=== PATIENT | male | born 1985 | race Caucasian/White ===

== ENCOUNTER 2017-04-20 09:40 | Observation (INO) | payer MEDICAID, OTHER ==
[2017-04-20] MEDS ORDERED: THIAMINE 100 MG/ML 2 ML VIAL IM STA (09:56)
[2017-04-20] MEDS ORDERED: SODIUM CHLORIDE 0.9% 1,000 ML IV STA (09:56)
[2017-04-20] MEDS: LORazepam 2 MG/ML SYRINGE IV PRN ×7 (10:03→23:22)
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
[2017-04-20 10:27] LABS: Basophils % (A) 0 %; CH 35.1; CHCM 36.2; Eosinophils # (A) 0.1 k/uL (0-0.7); Eosinophils % (A) 2 %; HCT 41.7 % (39.0-53.0); HGB 14.5 gm/dL (13.0-17.5); Luc # (Auto) 0.16; Luc % (Auto) 2; Lymphocytes # (A) 1.1 k/uL (1.0-4.8); Lymphocytes % (A) 14 %; MCH 33.8 pg (25.0-35.0); MCHC 34.8 g/dL (31.0-37.0); MCV 97.1 fL (80.0-100.0); Mean Platelet Volume 7.8; Monocytes # (A) 0.4 k/uL (0-1.0); Monocytes % (A) 6 %; Neutrophils # (A) 6.2 k/uL (1.3-7.7); Neutrophils % (A) 77 %; RBC 4.29 m/uL (4.30-5.90); RDW 14.1 % (11.5-15.5); WBC 8.1 k/uL (3.8-10.6)
--- NOTE | 2017-04-20 10:33 | XR ---
EXAMINATION TYPE: XR KUB DATE OF EXAM: 04/20/2017 COMPARISON: 05/07/2012 INDICATION: Abdomen pain loss of appetite TECHNIQUE: Single view abdomen upright view FINDINGS: There is a normal bowel gas pattern. Psoas margins are normal. No organomegaly is present. No free air is evident. No suspicious differential air-fluid levels are present. No suspicious calcif ications. IMPRESSION: 1. Unremarkable Abdomen
[2017-04-20 10:37] LABS: Amylase 45 U/L (30-110); Anion Gap 17 mmol/L; Calcium 9.1 mg/dL (8.4-10.2); Carbon Dioxide 22 mmol/L (22-30); Chloride 97 mmol/L (98-107); Glucose 75 mg/dL (74-99); Non-African American GFR(MDRD) >60 (>60 ml/min/1.73 sqM); Sodium 136 mmol/L (137-145); Total Bilirubin 1.5 mg/dL (0.2-1.3); Total Protein 7.7 g/dL (6.3-8.2)
[2017-04-20 10:43] LABS: Potassium 3.9 mmol/L (3.5-5.1)
[2017-04-20 10:44] LABS: ALT 76 U/L (21-72); AST 78 U/L (17-59); Alkaline Phosphatase 83 U/L (38-126); Blood Urea Nitrogen 9 mg/dL (9-20)
[2017-04-20 11:45] LABS: Appearance,Urine Clear (Clear); Bilirubin,Urine Negative (Negative); Glucose,Urine (UA) Negative (Negative); Ketones,Urine 2+ (Negative); Leukocyte Esterase,Urine Negative (Negative); Nitrite,Urine Negative (Negative); Protein,Urine Negative (Negative); Specific Gravity,Urine 1.006 (1.001-1.035); UA Billing (MACRO vs. MICRO) CHEM
[2017-04-20] MEDS ORDERED: ONDANSETRON 4 MG/2 ML VIAL IVP STA ×2 (12:19→13:12)
[2017-04-20] MEDS ORDERED: SODIUM CHLORIDE 0.9% 1,000 ML IV ONE (13:10)
[2017-04-20 14:40] VITALS: BMI 26.5
[2017-04-20] MEDS: ONDANSETRON 4 MG/2 ML VIAL IVP PRN ×2 (15:28→19:48)
[2017-04-20] MEDS: buPROPion XL 150 MG TAB.ER.24H PO SCH (16:28)
[2017-04-20] MEDS: QUEtiapine 200 MG TAB PO SCH (16:29)
[2017-04-20] MEDS: THIAMINE 100 MG TAB PO SCH (16:29)
[2017-04-20] MEDS: PANTOPRAZOLE 40 MG/10 ML VIAL IVP SCH (16:29)
[2017-04-20] MEDS: busPIRone HCl 10 MG TAB PO SCH ×2 (16:29→19:56)
[2017-04-20] MEDS: HYDROcodone/APAP 7.5-325MG 1 EACH TAB PO PRN ×2 (18:37→23:24)
[2017-04-20] MEDS: QUEtiapine 100 MG TAB PO SCH (19:56)
[2017-04-20] MEDS: GABAPENTIN 300 MG CAP PO SCH (19:56)
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
[2017-04-21] MEDS: LORazepam 2 MG/ML SYRINGE IV PRN ×11 (00:47→23:54)
[2017-04-21 07:12] LABS: ALT 61 U/L (21-72); AST 53 U/L (17-59); Alkaline Phosphatase 65 U/L (38-126); Anion Gap 10 mmol/L; Blood Urea Nitrogen 9 mg/dL (9-20); Calcium 8.7 mg/dL (8.4-10.2); Carbon Dioxide 26 mmol/L (22-30); Chloride 105 mmol/L (98-107); Glucose 81 mg/dL (74-99); Non-African American GFR(MDRD) >60 (>60 ml/min/1.73 sqM); Potassium 3.7 mmol/L (3.5-5.1); Sodium 141 mmol/L (137-145); Total Protein 6.4 g/dL (6.3-8.2)
[2017-04-21] MEDS: PANTOPRAZOLE 40 MG/10 ML VIAL IVP SCH (08:26)
[2017-04-21] MEDS: GABAPENTIN 300 MG CAP PO SCH ×3 (08:26→20:56)
[2017-04-21] MEDS: buPROPion XL 150 MG TAB.ER.24H PO SCH (08:27)
[2017-04-21] MEDS: busPIRone HCl 10 MG TAB PO SCH ×3 (08:27→20:57)
[2017-04-21] MEDS: QUEtiapine 200 MG TAB PO SCH (08:28)
[2017-04-21] MEDS: HYDROcodone/APAP 7.5-325MG 1 EACH TAB PO PRN ×2 (08:38→17:00)
[2017-04-21] MEDS: ONDANSETRON 4 MG/2 ML VIAL IVP PRN ×2 (11:25→17:59)
[2017-04-21] MEDS: THIAMINE 100 MG TAB PO SCH ×2 (11:31→17:03)
[2017-04-21] MEDS: QUEtiapine 100 MG TAB PO SCH (21:58)
--- NOTE | 2017-04-21 23:15 | P.PN ---
Subjective Principal diagnosis: Alcohol abuse and suicidal ideation Patient 32-year-old male significant past medical history for depression, alcoholism, who presents emergency room today by EMS, the chief complaint of nausea vomiting and abdominal pain and alcohol withdrawals. Abdominal pain is mainly in the epigastric region no radiation. No worsening factors. Patient is also very depressed and he does admit that he's also feeling suicidal. He states he would like to talk with somebody. When specifically asked if he is having thoughts of hurting himself he stated to me that he did not want to talk about it. He did tell nursing staff that he has had thoughts of hurting himself. Patient admits that his last drink was 5 PM last night. Patient denies any recent fever, chills, shortness of breath, chest pain, back pain, numbness or tingling, dysuria or hematuria, constipation or diarrhea, headaches or visual changes, or any other complaints. 04/21/2017 Patient seems depressed and denied any new complaints. No fever no chills. No chest pain or shortness breath. No acute or dishes. Anticipate transfer to psychiatric unit once bed available Objective - Vital Signs Vital signs: Vital Signs Temp 98.7 F 04/21/17 19:21 Pulse 64 04/21/17 19:21 Resp 16 04/21/17 19:21 BP 142/99 04/21/17 19:21 Pulse Ox 98 04/21/17 19:21 Intake & Output 04/21/17 04/21/17 04/22/17 06:59 18:59 06:59 Weight 81.5 kg Other: Voiding Method Toilet Toilet # Voids 3 1 # Bowel Movements 1 - Exam PHYSICAL EXAMINATION: Patient is lying in the bed comfortably, no acute distress, awake alert and oriented.. HEENT: Normocephalic. Neck is supple. Pupils reactive. Nostrils clear. Oral cavity is moist. Ears reveal no drainage. Neck reveals no JVD, carotid bruits, or thyromegaly. CHEST EXAMINATION: Trachea is central. Symmetrical expansion. Lung freitas clear to auscultation and percussion. CARDIAC: Normal S1, S2 with no gallops. No murmurs ABDOMEN: Soft. Bowel sounds normal. No organomegaly. No abdominal bruits. Extremities reveal no edema. No clubbing or cyanosis Neurologically awake, alert, oriented x3 with well-coordinated movements. Skin: no rash or skin lesions Psychiatric: Depressed and denied any suicidal ideation Musculoskeletal: no joint swelling or deformity. - Labs CBC & Chem 7: 04/20/17 10:11 04/21/17 06:40 Assessment and Plan Plan: #1 nausea vomiting abdominal pain with possible alcohol gastritis. Improved #2 alcohol abuse #3 depression with suicidal ideation #4 GERD #5 anxiety and depression history #6 UDS positive for benzodiazepines, marijuana, tricyclic and antidepressants Plan: Patient will be continued on IV fluids and symptomatic management for nausea and vomiting. Patient was started on IV Protonix and continue to follow and monitor for alcohol withdrawal symptoms. Psychiatric was consulted. Further recommendations based on the clinical course. Patient is cleared for transfer to inpatient psychiatric unit.
[2017-04-22] MEDS: LORazepam 2 MG/ML SYRINGE IV PRN ×5 (04:18→13:28)
[2017-04-22 04:25] VITALS: RESP 18
[2017-04-22 07:45] VITALS: BP 119/88; PULSE 73; TEMP 98.1
[2017-04-22] MEDS: busPIRone HCl 10 MG TAB PO SCH (08:47)
[2017-04-22] MEDS: PANTOPRAZOLE 40 MG/10 ML VIAL IVP SCH (08:47)
[2017-04-22] MEDS: buPROPion XL 150 MG TAB.ER.24H PO SCH ×2 (08:47→08:53)
[2017-04-22] MEDS: QUEtiapine 200 MG TAB PO SCH (08:48)
[2017-04-22] MEDS: HYDROcodone/APAP 7.5-325MG 1 EACH TAB PO PRN (08:49)
[2017-04-22] MEDS: GABAPENTIN 300 MG CAP PO SCH ×2 (09:34→12:48)
--- NOTE | 2017-04-22 11:01 | CONS ---
DATE OF SERVICE: 04/21/2017 PURPOSE OF CONSULTATION: Evaluate for substance use disorder. HISTORY OF PRESENT ILLNESS: The patient is a 32-year-old male. He presented to the emergency room with chief complaint of alcohol use. He was feeling suicidal in part because of his drinking. He had drank at 5:00 p.m. On the right prior to admission, he had complained of nausea, vomiting and abdominal pain, which was felt likely related to alcohol withdrawal. It is noted that the patient has a significant history of alcohol dependence. He has had multiple psychiatric hospitalizations including six prior hospitalizations since 2014 essentially for the same circumstances. He has been in treatment a number of times. He says that he will get out of treatment and will relapse very quickly. He notes that the last time he was in [place]. He was there for 32 days. When he got out he went for about a month without drinking and then relapsed. He says that this has been his history for many years. He says that one month of sobriety is probably the longest period that he has had sobriety in many years. He is on disability. He note that his mother handles his money. She gives him a limited amount of money though he acknowledges using it buy alcohol. At present he is homeless. He states that he has had some jobs intermittently though almost always he loses jobs because of drinking. 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 Current psychotropic medications prior to admission included Wellbutrin XL 150 mg a day, BuSpar 20 mg three times a day, Seroquel 200 mg in the morning and 300 mg in the evening. He is also on Neurontin 300 mg twice a day, 600 mg at bedtime. He has been continued on psychotropic medications. He also has been started on an alcohol withdrawal protocol. It is also noted that the patient is on hydrocodone 7.5 mg q.6h p.r.n. Patient himself states that alcohol is his drug of choice. He minimizes use of marijuana or other habit forming substances. On the other hand his drug screen was positive for marijuana , benzodiazepines, tricyclic antidepressants and barbiturates. It is note worthy that he is not on any prescribed medications based on what is reported as home medications that would show positive for barbiturate. Patient has been sleeping poor. His mood is down. He is distressed primarily by his relapse into drinking. He states that he has motivation to get into a substance use treatment program. He was at [place] for a 7 day detox program. The patient states he is willing to get into a substance use treatment program. It is noted that he is homeless. Nursing reports that he has not showed significant problems with mood or anxiety. It is noted that he may have intentionally mishandled [place] that was prescribed. MENTAL STATUS: The patient was lying in bed. The head of the bed was up. He gave good eye contact. Psychomotor activity was slowed. Speech was monotone. He answered questions appropriately. His thoughts were clear. He was not too spontaneous though he was interactive. His affect was blunted. His mood reserved. He was moderately distressed. There was no indication of thought disorder. Cognition was clear. ASSESSMENT AND PLAN: This 32 -year-old male was diagnosed with alcohol dependence continuous and major depression. He has had multiple psychiatric hospitalizations often with very similar circumstances of drinking leading to depression. He has had been in various substance use treatment programs and quite predictably relapses soon after discharge. At this point, I anticipate that we would transfer him to the psychiatric unit. However, I would have the social service worker begin looking for placement. Psychiatric hospitalization would primarily be aimed at setting up transfer to a substance use treatment program. At this point, I would continue his psychotropic medications as ordered. His CIWA scores today have been hovering around 10. It is noted that the patient describes a past history of hallucinations, at least one time and acute alcohol withdrawal though has not reported any clear indication of DTs. We will continue to focus on detoxification and aim for placement in an opioid substance use treatment program. [facility]
[2017-04-22] MEDS: THIAMINE 100 MG TAB PO SCH (11:18)
--- NOTE | 2017-04-23 01:08 | P.DS ---
Providers Date of admission: 04/20/17 13:08 Expected date of discharge: 04/22/17 Attending physician: Gerardo Bhatia MD Consults: 04/20/17 13:10 Consult Physician Stat Consulting Provider: Christiano Thomas Consult Reason/Comments: Depression Do you want consulting provider notified?: Already Contacted Primary care physician: Stated None Hospital Course: Discharge diagnosis #1 nausea vomiting abdominal pain with possible alcohol gastritis. Improved #2 alcohol abuse #3 depression with suicidal ideation #4 GERD #5 anxiety and depression history #6 UDS positive for benzodiazepines, marijuana, tricyclic and antidepressants Hospital course Patient 32-year-old male significant past medical history for depression, alcoholism, who presents emergency room today by EMS, the chief complaint of nausea vomiting and abdominal pain and alcohol withdrawals. Abdominal pain is mainly in the epigastric region no radiation. No worsening factors. Patient is also very depressed and he does admit that he's also feeling suicidal. He states he would like to talk with somebody. When specifically asked if he is having thoughts of hurting himself he stated to me that he did not want to talk about it. He did tell nursing staff that he has had thoughts of hurting himself. Patient admits that his last drink was 5 PM last night. Patient denies any recent fever, chills, shortness of breath, chest pain, back pain, numbness or tingling, dysuria or hematuria, constipation or diarrhea, headaches or visual changes, or any other complaints. 04/21/2017 Patient seems depressed and denied any new complaints. No fever no chills. No chest pain or shortness breath. No acute or dishes. Anticipate transfer to psychiatric unit once bed available 04/20/2017. Patient was seen by psychiatry and recommended inpatient psychiatric transfer. Sittter was discontinued. Patient doesn't want to be transferred to psychiatric unit and wants to go home. Patient otherwise denied any suicidal ideation. Patient left againest medical advice. Patient was monitored for alcohol withdrawal symptoms. Continued with IV fluids , thiamine and multivitamins. Continued on Protonix. Patient did improve medically. Denied any suicidal ideation.. And wants to go home. Patient left against medical advice. Patient Condition at Discharge: Stable Plan - Discharge Summary New Discharge Prescriptions: New Thiamine [Vitamin B-1] 100 mg PO DAILY #30 tab Continue Gabapentin 600 mg PO HS 28 Days QUEtiapine FUMARATE [SEROquel] 300 mg PO HS 28 Days HYDROcodone/APAP 7.5-325MG [[place] 7.5-325] 1 tab PO Q6H PRN PRN Reason: Pain buPROPion XL [Wellbutrin XL] 150 mg PO DAILY QUEtiapine [SEROquel] 200 mg PO DAILY Gabapentin [Neurontin] 300 mg PO BID@0800,1200 busPIRone HCl [Buspar] 20 mg PO TID Omeprazole 40 mg PO W/BRKFST Discharge Medication List Gabapentin 600 mg PO HS 28 Days 08/21/16 [Rx] QUEtiapine FUMARATE [SEROquel] 300 mg PO HS 28 Days 08/21/16 [Rx] Gabapentin [Neurontin] 300 mg PO BID@0800,1200 04/20/17 [History] HYDROcodone/APAP 7.5-325MG [[place] 7.5-325] 1 tab PO Q6H PRN 04/20/17 [History] Omeprazole 40 mg PO W/BRKFST 04/20/17 [History] QUEtiapine [SEROquel] 200 mg PO DAILY 04/20/17 [History] buPROPion XL [Wellbutrin XL] 150 mg PO DAILY 04/20/17 [History] busPIRone HCl [Buspar] 20 mg PO TID 04/20/17 [History] Thiamine [Vitamin B-1] 100 mg PO DAILY #30 tab 04/22/17 [Rx] Follow up Appointment(s)/Referral(s): None,Stated [Primary Care Provider] - 1-2 days Discharge Disposition: Left Against Medical Advice
--- NOTE | 2017-04-23 23:52 | CONS ---
DATE OF CONSULTATION: 04/22/2017 PURPOSE FOR CONSULTATION: Evaluate for substance use disorder. INTERVAL HISTORY: At the time that I saw the patient, he had indicated to Nursing and his physician that he intended to sign out AMA. He was not clear about the reason for him signing out. He had the expectation that he would be transferred to the psychiatric unit. He said that he expected to be there for about one week to engage in therapy. I had talked to the patient yesterday about the plan that Social Work would help him find a substance use treatment facility that would meet his needs. We had discussed that whether that he was in his current unit or on the psychiatric unit that the focus would be on identifying an appropriate placement for issues that he said he wanted to address primarily, which is long-term and persistent substance use disorder. It is noted that he did not have significant issues with withdrawal. His CIWA scores were all below 12 and were progressively declining from the point of admission. In regard to withdrawal signs, his temperature remained in the normal range. He did have tachycardia, more noted in the first day of his admission, with a pulse above 120 at one reading. His blood pressure was relatively stable. His highest blood pressure on 04/21 was 142/99, though ( ) his blood pressures remained relatively stable and were in the normal range on the day of discharge. I indicated to the patient that the recommendation still is for a long-term substance abuse treatment program. I encouraged the patient to make contact with the [facility] line to make a determination as to availability of appropriate programs. I also indicated that the hospital social science instructor is able to work with him, no matter what unit he is on, to develop an appropriate follow-up plan for the patient. When I saw him, he had clear speech. He had a calm manner. His affect was a little constricted. His mood was reserved. He did not appear to be significantly distressed. There was no indication of thought disorder. Cognition was clear. ASSESSMENT: The patient has decided to sign out AMA. I encouraged the patient to contact [facility] or continue in his hospitalization for the objective of finding an appropriate substance use program for the patient. BRIDGER
== END 2017-04-22 14:30 | disposition left against medical advice (07) ==
LOC: EC 09:40 → 3OBS 13:08
PROVIDERS: ADMIT Internal Medicine; ATTEND Internal Medicine
DX: R11.2 Nausea with vomiting, unspecified (principal); F10.239 Alcohol dependence with withdrawal, unspecified; R00.0 Tachycardia, unspecified; R10.13 Epigastric pain; F31.9 Bipolar disorder, unspecified; F60.3 Borderline personality disorder; R45.851 Suicidal ideations; K21.9 Gastro-esophageal reflux disease without esophagitis; F41.9 Anxiety disorder, unspecified; Z59.0 Homelessness; Z79.899 Other long term (current) drug therapy; Z53.21 Procedure and treatment not carried out due to patient leaving prior to being seen by health care provider; F90.9 Attention-deficit hyperactivity disorder, unspecified type; Z86.19 Personal history of other infectious and parasitic diseases; G89.29 Other chronic pain
CPT/HCPCS: 99285; 96372; 96374; 96375 ×3; 96376 ×6; 96361 ×2; 82075; 36415; 80053 ×2; 82150; 83690; 85025; 81003; 80306; 74000; G0378 ×3; J2060 ×3; J3411; J2405 ×2; C9113 ×3

== ENCOUNTER 2017-05-01 06:48 | Inpatient (IN) | payer MEDICAID, OTHER ==
[2017-05-01] MEDS ORDERED: LORazepam 1 MG TAB PO STA ×2 (07:19→10:32)
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
[2017-05-01] MEDS ORDERED: PANTOPRAZOLE 40 MG TABLET PO STA (08:08)
[2017-05-01] MEDS ORDERED: QUEtiapine 200 MG TAB PO STA (08:08)
[2017-05-01] MEDS ORDERED: busPIRone HCl 10 MG TAB PO STA (08:08)
[2017-05-01] MEDS ORDERED: GABAPENTIN 300 MG CAP PO STA (08:08)
[2017-05-01] MEDS ORDERED: buPROPion XL 150 MG TAB.ER.24H PO STA (08:08)
[2017-05-01] MEDS ORDERED: MAG HYDROX/AL HYDROX/SIMETH 30 ML CUP PO PRN (12:08)
[2017-05-01] MEDS ORDERED: MAGNESIUM HYDROXIDE 2,400 MG/10 ML CUP PO PRN (12:08)
[2017-05-01] MEDS ORDERED: LORazepam 2 MG/ML SYRINGE IM PRN (12:13)
[2017-05-01] MEDS: LORazepam 1 MG TAB PO PRN ×6 (12:44→23:16)
[2017-05-01] MEDS: THIAMINE 100 MG TAB PO SCH (12:44)
[2017-05-01] MEDS: busPIRone HCl 10 MG TAB PO SCH ×2 (15:14→21:07)
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
[2017-05-01] MEDS ORDERED: QUEtiapine 100 MG TAB PO SCH (21:00)
[2017-05-02] MEDS: LORazepam 1 MG TAB PO PRN ×8 (02:15→22:38)
[2017-05-02] MEDS ORDERED: GABAPENTIN 300 MG CAP PO SCH (08:00)
[2017-05-02] MEDS: THIAMINE 100 MG TAB PO SCH (08:06)
[2017-05-02] MEDS: busPIRone HCl 10 MG TAB PO SCH (08:06)
[2017-05-02] MEDS: PANTOPRAZOLE 40 MG TABLET PO SCH (08:06)
[2017-05-02] MEDS: FOLIC ACID 1 MG TAB PO SCH (08:06)
[2017-05-02 08:44] LABS: Basophils # (A) 0.1 k/uL (0-0.2); Basophils % (A) 1 %; CH 35.3; CHCM 36.4; Eosinophils # (A) 0.2 k/uL (0-0.7); Eosinophils % (A) 3 %; HCT 45.1 % (39.0-53.0); HDW 2.53; HGB 15.8 gm/dL (13.0-17.5); Luc # (Auto) 0.16; Luc % (Auto) 3; Lymphocytes % (A) 37 %; MCH 33.9 pg (25.0-35.0); MCHC 34.9 g/dL (31.0-37.0); MCV 97.2 fL (80.0-100.0); Mean Platelet Volume 7.7; Monocytes # (A) 0.5 k/uL (0-1.0); Monocytes % (A) 9 %; Neutrophils # (A) 2.5 k/uL (1.3-7.7); Neutrophils % (A) 47 %; RBC 4.64 m/uL (4.30-5.90); RDW 14.4 % (11.5-15.5); WBC 5.4 k/uL (3.8-10.6); WBC (Perox) 5.23
[2017-05-02] MEDS ORDERED: QUEtiapine 200 MG TAB PO SCH (09:00)
[2017-05-02] MEDS ORDERED: buPROPion XL 150 MG TAB.ER.24H PO SCH (09:00)
[2017-05-02] MEDS ORDERED: NICOTINE 14MG/24HR PATCH TRANSDERM SCH (09:00)
[2017-05-02 09:07] LABS: ALT 98 U/L (21-72); AST 100 U/L (17-59); Alkaline Phosphatase 101 U/L (38-126); Anion Gap 12 mmol/L; Blood Urea Nitrogen 13 mg/dL (9-20); Carbon Dioxide 28 mmol/L (22-30); Chloride 99 mmol/L (98-107); Glucose 96 mg/dL (74-99); Non-African American GFR(MDRD) >60 (>60 ml/min/1.73 sqM); Sodium 139 mmol/L (137-145); Total Bilirubin 1.4 mg/dL (0.2-1.3); Total Protein 8.5 g/dL (6.3-8.2)
[2017-05-02 11:25] LABS: Magnesium 2.1 mg/dL (1.6-2.3)
--- NOTE | 2017-05-02 13:40 | P.PN ---
Subjective Principal diagnosis: Repeated vomitting , severe depression 32-year-old male with past medical history of hepatitis C, history of bipolar disorder and depression. Patient is [facility] due to suicidal ideation. He reports that he is currently homeless for over 2 weeks now since then he's been drinking of least 1-2 fifths of vodka daily. His last drink was 5 PM on April 30. He reports history of withdrawal symptoms but no history of seizures no history of ICU admission or endotracheal intubation. He reports that he had repeated vomiting when he was at home ended up with seeing streaks of blood due to forceful vomiting denies any coffee-ground vomiting or bilious vomiting. He reports that he attempted suicide twice over the past 10 years. Currently patient is cooperating with interview and exam. Today he denied any nausea or vomitting or abdomenal pain No other GI complaints He tested Negative for HIV x 3 months ago No hematemesis or melena Review of Systems Constitutional: Patient reports no fever, no chills, no night sweating, no significant weight changes Eyes: Patient reports no visual changes, no eye pain ENT: Patient reports no ear pain, no rhinorrhea, no sore throat Cardiovascular: Patient reports no chest pain, no exertional dyspnea, no peripheral leg edema, no orthopnea, no paroxysmal nocturnal dyspnea Respiratory:Patient reports no cough, no wheezing, no shortness of breath Gastrointestinal: resolved above symptoms Genitourinary: Patient reports no dysuria, no hematuria, no changes in urinary habits, no genital lesions Musculoskeletal: Patient reports no muscle pain, no joint pain Psychiatric: Patient reports feeling hopeless, depressed mood, with suicidal ideation and plans to cut his wrist, he reports that he attempted that twice over the past 10 years Endocrine: Patient reports no heat intolerance, no cold intolerance, no excessive thirst, no polyuria Neurological: Patient reports no focal neurologic deficits, no weakness, no numbness, no tingling Hem/Lymphatic: Patient reports no bleeding tendency, no bruising, no swollen lymph glands Allergic/Immun: Patient reports no recent allergic reactions Skin: Patient reports no rashes, no pruritis, no ulcers. He showed me superficial scars of self-inflicted wounds from the suicidal attempt in the past over the ventral aspect of his left forearm Objective - Vital Signs Vital signs: Vital Signs Temp 97.7 F 05/02/17 02:16 Pulse 144 H 05/02/17 02:16 Resp 18 05/02/17 02:16 BP 188/64 05/02/17 02:16 Pulse Ox 98 05/02/17 02:16 - Exam Physical examination was performed General he appears comfortable no icterus or cyanosis or pallor or respiratory distress HEENT unremarkable. PERRLA, EOMI, no oropharyngeal exUDATE OR Neck exam: Supple no lymphadenopathy no masses no carotids bruits or thyromegaly Chest: No bony tenderness. 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 Cranial nerves are intact Cerebellar function is intact Musculoskeletal system : Normal exam sKIN : Normal exam . Normal peripheral pulses no edema nor signs of DVT - Neurologic Neurologic: Present: CNII-XII intact - Musculoskeletal Musculoskeletal: Present: gait normal, strength equal bilaterally - Psychiatric Psychiatric: Present: A&O x's 3, intact judgment & insight - Labs CBC & Chem 7: 05/02/17 07:53 05/02/17 07:53 Labs: Abnormal Lab Results - Last 24 Hours (Table) 05/02/17 05/02/17 Range/Units 07:53 07:53 Total Bilirubin 1.4 H (0.2-1.3) mg/dL GGT 178 H (15-73) U/L AST 100 H (17-59) U/L ALT 98 H (21-72) U/L Total Protein 8.5 H (6.3-8.2) g/dL Assessment and Plan (1) Depression Narrative/Plan: As per psychiatry the patient asked for clonazepam and [place] I advised him that clonazepam will be started and managed by the psychiatrist and I advised that [place] would not be prescribed at this time no clear indication for it and contraindicated with his liver disease Status: Acute (2) Suicidal ideation Status: Acute (3) Alcohol dependence, continuous Narrative/Plan: Detox therapy as per psychiatry Status: Acute (4) Alcohol withdrawal syndrome Narrative/Plan: No evidence OF withdrawal at this time Status: Acute (5) Intractable nausea and vomiting Narrative/Plan: Resolved symptoms at this time Continue proton pump inhibitors Avoid nonsteroidal anti-inflammatory agents Monitor liver enzymes and check his amylase and lipase Most likely alcoholic gastritis Status: Acute (6) Cannabis abuse Narrative/Plan: Advised to quit Status: Chronic (7) Hepatitis C Narrative/Plan: Known with this diagnosis No previous therapy Liver enzymes elevation 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
[2017-05-02] MEDS ORDERED: BACITRACIN OINT 1 EACH PACKET TOPICAL ONE (18:10)
[2017-05-02] MEDS ORDERED: HALOPERIDOL LACTATE 5 MG/ML 1 ML VIAL IM ONE (18:27)
[2017-05-02] MEDS ORDERED: LORazepam 1 MG TAB PO PRN (23:06)
[2017-05-03] MEDS: cloNIDine HCL 0.1 MG TAB PO SCH ×3 (01:47→20:24)
[2017-05-03] MEDS: ACETAMINOPHEN TAB 325 MG TAB PO PRN ×2 (01:47→20:55)
[2017-05-03] MEDS: LORazepam 1 MG TAB PO SCH ×4 (02:21→08:34)
[2017-05-03] MEDS: THIAMINE 100 MG TAB PO SCH (08:17)
[2017-05-03] MEDS: PANTOPRAZOLE 40 MG TABLET PO SCH (08:18)
[2017-05-03] MEDS: FOLIC ACID 1 MG TAB PO SCH (08:19)
[2017-05-03 08:31] LABS: CHCM 35.2; HCT 41.7 % (39.0-53.0); HDW 2.58; HGB 14.5 gm/dL (13.0-17.5); MCH 33.7 pg (25.0-35.0); MCHC 34.8 g/dL (31.0-37.0); MCV 96.9 fL (80.0-100.0); Mean Platelet Volume 7.4; RDW 13.3 % (11.5-15.5); WBC 6.2 k/uL (3.8-10.6)
[2017-05-03 08:56] LABS: ALT 94 U/L (21-72); AST 98 U/L (17-59); Alkaline Phosphatase 78 U/L (38-126); Anion Gap 12 mmol/L; Blood Urea Nitrogen 16 mg/dL (9-20); Calcium 9.7 mg/dL (8.4-10.2); Carbon Dioxide 26 mmol/L (22-30); Chloride 101 mmol/L (98-107); Glucose 94 mg/dL (74-99); Non-African American GFR(MDRD) >60 (>60 ml/min/1.73 sqM); Potassium 3.8 mmol/L (3.5-5.1); Sodium 139 mmol/L (137-145); Total Bilirubin 0.8 mg/dL (0.2-1.3); Total Protein 7.7 g/dL (6.3-8.2)
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
[2017-05-03 09:38] LABS: Appearance,Urine Clear (Clear); Bilirubin,Urine Negative (Negative); Glucose,Urine (UA) Negative (Negative); Ketones,Urine Negative (Negative); Leukocyte Esterase,Urine Negative (Negative); Nitrite,Urine Negative (Negative); PH, Urine 6.5 (5.0-8.0); Protein,Urine Trace (Negative); Specific Gravity,Urine 1.019 (1.001-1.035); UA Billing (MACRO vs. MICRO) CHEM; Urobilinogen,Urine <2.0 mg/dL (<2.0)
[2017-05-03] MEDS ORDERED: QUEtiapine 100 MG TAB PO ONE (11:03)
--- NOTE | 2017-05-03 13:24 | P.PN ---
Subjective Principal diagnosis: Repeated vomitting , severe depression 32-year-old male with past medical history of hepatitis C, history of bipolar disorder and depression. [facility] is [facility] due to suicidal ideation. He reports that he is currently homeless for over 2 weeks now since then he's been drinking of least 1-2 fifths of vodka daily. His last drink was 5 PM on April 30. He reports history of withdrawal symptoms but no history of seizures no history of ICU admission or endotracheal intubation. He reports that he had repeated vomiting when he was at home ended up with seeing streaks of blood due to forceful vomiting denies any coffee-ground vomiting or bilious vomiting. He reports that he attempted suicide twice over the past 10 years. Currently patient is cooperating with interview and exam. Today he denied any nausea or vomitting or abdomenal pain No other GI complaints He tested Negative for HIV x 3 months ago No hematemesis or melena Review of Systems Constitutional: Patient reports no fever, no chills, no night sweating, no significant weight changes Eyes: Patient reports no visual changes, no eye pain ENT: Patient reports no ear pain, no rhinorrhea, no sore throat Cardiovascular: Patient reports no chest pain, no exertional dyspnea, no peripheral leg edema, no orthopnea, no paroxysmal nocturnal dyspnea Respiratory:Patient reports no cough, no wheezing, no shortness of breath Gastrointestinal: resolved above symptoms Genitourinary: Patient reports no dysuria, no hematuria, no changes in urinary habits, no genital lesions Musculoskeletal: Patient reports no muscle pain, no joint pain Psychiatric: Patient reports feeling hopeless, depressed mood, with suicidal ideation and plans to cut his wrist, he reports that he attempted that twice over the past 10 years Endocrine: Patient reports no heat intolerance, no cold intolerance, no excessive thirst, no polyuria Neurological: Patient reports no focal neurologic deficits, no weakness, no numbness, no tingling Hem/Lymphatic: Patient reports no bleeding tendency, no bruising, no swollen lymph glands Allergic/Immun: Patient reports no recent allergic reactions Skin: Patient reports no rashes, no pruritis, no ulcers. He showed me superficial scars of self-inflicted wounds from the suicidal attempt in the past over the ventral aspect of his left forearm Objective - Vital Signs Vital signs: Vital Signs Temp 98.2 F 05/03/17 10:53 Pulse 99 05/03/17 10:53 Resp 16 05/03/17 10:53 BP 120/77 05/03/17 10:53 Pulse Ox 98 05/02/17 02:16 - Exam Physical examination was performed General he appears comfortable no icterus or cyanosis or pallor or respiratory distress HEENT unremarkable. PERRLA, EOMI, no oropharyngeal exUDATE OR Neck exam: Supple no lymphadenopathy no masses no carotids bruits or thyromegaly Chest: No bony tenderness. cLEAR TO Auscultation and percussion , no added sounds Heart: Regular normal S1 and S2 no gallop , no murmurs aBDOMEN : Benign no masses no organomegaly no hepatosplenomegaly bowel sounds normally Normal stigmata of chronic liver disease or cirrhosis OR PORTAL hypertension PICKING TECH : Intact POWER, DTRs and sensory system OF ALL EXTRIMITIES. Cranial nerves are intact Cerebellar function is intact Musculoskeletal system : Normal exam sKIN : Normal exam Normal peripheral pulses no edema nor signs of DVT - Labs CBC & Chem 7: 05/03/17 07:45 05/03/17 07:45 Labs: Abnormal Lab Results - Last 24 Hours (Table) 05/03/17 05/03/17 Range/Units 07:45 09:30 AST 98 H (17-59) U/L ALT 94 H (21-72) U/L Urine Protein Trace H (Negative) Assessment and Plan (1) Depression Narrative/Plan: As per psychiatry the patient asked for clonazepam and [place] I advised him that clonazepam will be started and managed by the psychiatrist and I advised that [place] would not be prescribed at this time no clear indication for it and contraindicated with his liver disease Status: Acute (2) Suicidal ideation Status: Acute (3) Alcohol dependence, continuous Narrative/Plan: Detox therapy as per psychiatry Status: Acute (4) Alcohol withdrawal syndrome Narrative/Plan: No evidence OF withdrawal at this time Status: Acute (5) Intractable nausea and vomiting Narrative/Plan: Resolved symptoms at this time Continue proton pump inhibitors Avoid nonsteroidal anti-inflammatory agents Monitor liver enzymes Most likely alcoholic gastritis Status: Acute (6) Cannabis abuse Narrative/Plan: Advised to quit Status: Chronic (7) Hepatitis C Narrative/Plan: Known with this diagnosis No previous therapy Decrease in LFT's noted on labs today Liver enzymes elevation need 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
--- NOTE | 2017-05-03 13:29 | CONS ---
CONSULTATION DATE OF DICTATION: May 03, 2017. REASON FOR CONSULTATION: Elevated LFTs, history of hep C infection. HISTORY OF PRESENT ILLNESS: The patient is a 32-year-old pleasant white male, who was admitted to the hospital with suicidal ideations and history of heavy alcohol abuse. During this hospitalization he was noted to have elevated serum transaminases and because of prior history of hepatitis C infection that was diagnosed 2 years ago we are consulted in regards to this issue. The patient states that about 2 years ago he became extremely jaundiced and was diagnosed with acute hepatitis C infection to [facility] for 6 days. He said he was using intravenous heroin at that time. He does not recall if he ever had a follow up after that and was tested for hepatitis C again. However he continued to drink alcohol heavily about a year later he was readmitted to [facility] and once again he was told he has elevated serum transaminases related to alcohol use. Has been drinking at least 1 to 2 fifths of vodka a day and about 3-4 cans of beer a day. Presently denies any abdominal pain. Reports no nausea or vomiting. During this hospitalization, he had acute alcohol withdrawal for the first two days, at which time, he has experienced some nausea but now he is normal. He had some rectal bleeding with some dark colored stools. Occasionally has some epigastric discomfort. No fever chills or night sweats. PAST MEDICAL HISTORY: Significant for heavy alcohol abuse. Hepatitis C. Gastroesophageal reflux disease. PAST SURGICAL HISTORY: None. MEDICATIONS: Current medications include: 1. Gabapentin. 2. Seroquel. 3. Neurontin. 4. [place]. 5. Omeprazole. 6. Seroquel. 7. Wellbutrin. 8. BuSpar. 9. Vitamin B12. ALLERGIES: None. SOCIAL HISTORY: Chronic smoker, heavy alcohol abuse as mentioned above. FAMILY HISTORY: Father unremarkable. Mother healthy. Brother has ADHD. REVIEW OF SYSTEMS: Cardiopulmonary is no chest pain, shortness of breath. Genitourinary: No dysuria or hematuria. Musculoskeletal unremarkable. Skin: Unremarkable. Endocrine: Unremarkable. Psychiatric: As mentioned above. Presently being treated for severe depression and polysubstance abuse. Neurological: Unremarkable. ENT/vision: Unremarkable. Constitutional: No recent weight loss. No fevers, chills, night sweats. Hematology unremarkable. Endocrine: Unremarkable. PHYSICAL EXAMINATION: He appears comfortable. In no apparent distress. Vital signs stable. Blood pressure 106/59. Pulse 78. Temperature 98. HEENT examination unremarkable. Conjunctivae pink. Sclerae anicteric. Oral cavity no lesions. Neck: No jugular venous distention or lymph node enlargement. Chest clear to auscultation. HEART: Regular rate and rhythm. ABDOMEN: Soft. Liver and spleen not palpable. Bowel sounds are positive. Extremities no pedal edema. SKIN: No rashes. Neuro: He is alert and oriented times three. No focal deficits. LAB DATA: At the time of admission to the hospital: WBC 5.4, hemoglobin 15.8, platelets are normal. T-bilirubin 1.4, today it is 0.8, AST 100, ALT 98. Alkaline phosphatase is normal. Toxicology screen THC positive, barbiturates screen is positive. IMPRESSION: 1. This is a patient with history of alcohol abuse. Polysubstance abuse. Admitted to the hospital with suicidal ideation. He was noted to have elevated serum transaminases and hence we are consulted in regards to this issue. According to the history, he was diagnosed with acute hepatitis C infection two years ago when he was doing intravenous drugs. Presently he is noted to have elevated serum transaminases most likely related to chronic hepatitis C infection in combination with alcohol-induced liver disease. 2. Depression/suicidal ideation. 3. Polysubstance abuse. 4. Heavy alcohol abuse. RECOMMENDATION: I had a lengthy discussion with the patient regarding further workup. At this time, I will obtain hepatitis C viral RNA as well as genotype but I did mention to him that he has to be abstinent from alcohol in the future for him to be treated for chronic hepatitis C with oral antiviral therapy. At this time I am going to await the labs and the patient was advised to follow up in the office following discharge from the hospital. Thank you for this consultation. MMJACKL / ESHAN: [id number] /
--- NOTE | 2017-05-03 15:32 | PN ---
PROGRESS NOTE DATE OF SERVICE: 05/03/2017. CHIEF COMPLAINT: The patient was actively drinking. 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 He has depression and suicide thoughts, primarily related to his persistent drinking. INTERVAL HISTORY: Patient has been doing fair. He notes with some optimism that he has not had any Ativan since last evening. He did receive a one-time dose of Haldol 10 mg around 6:30 when he was in a somewhat agitated state. He felt that helped him feel calmer. His vital signs have stabilized in the normal range. I have discontinued Ativan, though we continue to monitor vital signs every 4 hours. He has not shown significant withdrawal issues. Today the patient is very concerned about the idea that he needs to start on various medications, including low-dose Wellbutrin, BuSpar, Neurontin. We had an extensive discussion about treatment priorities. Patient was willing to limit what medications he is on at present. My strong focus with the patient was for him to develop nonpharmacologic ways to help manage some of his stress, mood and anxiety issues. Along with that, we had an extensive discussion about the management of acute alcohol withdrawal. We discussed serious health issues relating to his current situation. We talked about long-term treatment issues regarding alcohol and substance abuse. The patient seemed to be relieved as we reviewed a number of issues about what he needs to do to help better organize his life. He stated that he has some housing available in the near future, which he sees as a positive. 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 He has not had change in his general health. He tolerates his psychotropic medications. MENTAL STATUS: Patient gave fair eye contact. He was a little restless. Thoughts were clear. He was spontaneous and interactive. His affect was anxious, his mood reserved. He seems somewhat distressed. ASSESSMENT: I will continue the current diagnosis and the general treatment plan. I will discontinue Ativan. Will monitor vital signs q.4 hours. Staff will update me in with any abnormal labs and will start the patient on Seroquel 100 mg twice a day, 200 mg at bedtime. We will focus on managing withdrawal issues. Patient was started yesterday on clonidine 0.1 mg twice a day. He feels that has been helpful as in addition to managing early withdrawal. His latest vital signs this morning at 11:00 included blood pressure 120/77, pulse of 99, temp 98.2, respirations 16. I will get updates from staff as appropriate. LINDSAY / TRUPIT: [id number] / MTDD
[2017-05-03] MEDS: QUEtiapine 100 MG TAB PO SCH (16:22)
[2017-05-03] MEDS: QUEtiapine 200 MG TAB PO SCH (20:24)
[2017-05-03] MEDS ORDERED: QUEtiapine 100 MG TAB PO SCH (21:00)
[2017-05-04] MEDS: PANTOPRAZOLE 40 MG TABLET PO SCH (08:30)
[2017-05-04] MEDS: cloNIDine HCL 0.1 MG TAB PO SCH ×2 (08:31→20:10)
[2017-05-04] MEDS: QUEtiapine 100 MG TAB PO SCH ×2 (08:31→15:02)
[2017-05-04] MEDS ORDERED: BACITRACIN OINT 1 EACH PACKET TOPICAL ONE (10:19)
[2017-05-04] MEDS: ACETAMINOPHEN TAB 325 MG TAB PO PRN ×2 (10:45→14:46)
[2017-05-04] MEDS: THIAMINE 100 MG TAB PO SCH (12:28)
[2017-05-04] MEDS: FOLIC ACID 1 MG TAB PO SCH (12:28)
--- NOTE | 2017-05-04 14:30 | PN ---
PROGRESS NOTE DATE OF SERVICE: 05/04/2017. CHIEF COMPLAINT: The patient was actively drinking. He has long-term alcohol use with virtually no periods of sobriety throughout his adult life. He has depression and suicide thoughts primarily related to his persistent drinking. INTERVAL HISTORY: He has been doing fairly well. He had a quiet evening last night. He slept well. He comes out in the day area. He will interact some with others. His vital signs remain stable. He does not make an effort to attend groups. He has had mostly very low numbers on his CIWA scale with his numbers yesterday all 4 or below. He a is very focused on the idea that he needs to get back on various medications such as BuSpar. It is noteworthy that he says that he is feeling good one minute and then will say he is distressed because he is not on his other medications. He has very limited insight about alcohol withdrawal issues. Overall he has been managing fairly well by objective standards. He has not had change in his general health. He did have some problems with nausea and vomiting though that has resolved. He has been assessed by Dr. 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 It is noted that when he was seen for medical consultation yesterday he was asking for Klonopin and [place]. Dr. Wihteside also indicated that there was no evidence of withdrawal at the time of his evaluation yesterday. The patient tolerates his psychotropic medications. MENTAL STATUS: Patient gave good eye contact. Psychomotor activity was a little restless. His thoughts were clear. He had somewhat intense affect and would fluctuate with some periods where he would get angry. His mood was dysphoric. He was moderately distressed. ASSESSMENT: I will continue the current diagnosis and treatment plan. I will continue psychotropic medications the same. He continues on Seroquel 100 mg morning and afternoon, 200 mg at bedtime and clonidine 0.1 mg twice a day. Both medications indicated to help reduce and manage withdrawal symptoms. We do have a family meeting anticipated for early in the week as part of discharge planning. It is noteworthy that the patient says that he is very focused on the idea that he is moving into his own apartment which he has not had before. Beyond that he has no plans at all in regards to what he may need for substance use followup. He said that he anticipated seeing the physician at [facility] in a few weeks after he gets out of the hospital and that he would be seen once a week in counseling. I had an extensive discussion with the patient that he is likely to need daily and intensive services particularly over the next few months if he has any hope it all of being able to move away from his drinking and drug habits. There might be consideration for partial hospitalization, DBT are other services. We will continue to focus on stabilization and discharge planning. LINDSAY / ESHAN: [id number] /
[2017-05-04] MEDS: QUEtiapine 200 MG TAB PO SCH (20:10)
[2017-05-04] MEDS: BACITRACIN 500 UNIT/GM OINT 28.4 GM TUBE TOPICAL SCH (20:11)
[2017-05-05 06:44] VITALS: TEMP 97.7
[2017-05-05] MEDS: PANTOPRAZOLE 40 MG TABLET PO SCH (08:54)
[2017-05-05] MEDS: QUEtiapine 100 MG TAB PO SCH ×2 (08:54→16:12)
[2017-05-05] MEDS: cloNIDine HCL 0.1 MG TAB PO SCH ×2 (08:54→21:14)
[2017-05-05] MEDS: BACITRACIN 500 UNIT/GM OINT 28.4 GM TUBE TOPICAL SCH ×2 (09:44→21:14)
[2017-05-05] MEDS: THIAMINE 100 MG TAB PO SCH (12:07)
[2017-05-05] MEDS: FOLIC ACID 1 MG TAB PO SCH (12:07)
[2017-05-05] MEDS: ACETAMINOPHEN TAB 325 MG TAB PO PRN (13:33)
--- NOTE | 2017-05-05 16:22 | PN ---
PROGRESS NOTE / TRANSFER NOTE: DATE OF SERVICE: 05/05/2017. CHIEF COMPLAINT: The patient was actively drinking. He has long-term alcohol use with virtually no periods of sobriety throughout his adult life. He has depression and suicide thoughts primarily related to his persistent drinking. SUMMARY: The patient was admitted for relapsing alcohol use. He reports longest period of sobriety in a number of years has been about 30 days. He acknowledges that he is very obsessive about his medications and also has limited insight in regard to the course of withdrawal. He is homeless though will be getting into his own apartment. His main concern is how he could maintain sobriety for longer than 30 days so he can be stable in his home. He will need some type of on going daily services such as DBT. INTERVAL HISTORY: The patient has been doing fairly well. He had a quiet evening last night. He slept well. Today he has been up and about. Generally his mood is better. He gets out in the day area. He interacts with others. He attends groups. He still believes that he needs to be started on his Wellbutrin or his BuSpar though he also accepts the idea that he may obsess about those things and if it was not that he be obsessing about something else. I strongly encouraged him to just focus on withdrawal issues with his current medications, which seem to be helping reduce withdrawal symptoms. Vital signs have been stable. I had an extensive discussion with the patient regarding things he can do it to help work on developing a more productive lifestyle including a walking program, getting engaged in some kinds of community activities, connecting with important supports as part of a significant change in lifestyle to help him move away from drinking. He has not had change in his general health. He tolerates his psychotropic medications. MENTAL STATUS: Patient gave good eye contact. He was a little restless. His thoughts were clear. He was spontaneous and interactive. His affect was in the reasonable range. He may have been a little nervous though he smiled some. His mood was even. He did appear to be significantly distressed. ASSESSMENT: I will continue the current diagnosis and treatment plan. The plan is for a family meeting in the next couple days as part of discharge planning. He will be referred to a substance use treatment program. His mother is his primary support who would be important person to be in the discharge planning meeting. I would limit use of psychotropic medications particularly for the first month of withdrawal. MMODL / IJN: [id number] / BRIDGER
[2017-05-05] MEDS: QUEtiapine 200 MG TAB PO SCH (21:14)
[2017-05-06] MEDS: PANTOPRAZOLE 40 MG TABLET PO SCH (07:51)
[2017-05-06] MEDS: FOLIC ACID 1 MG TAB PO SCH (08:46)
[2017-05-06] MEDS: BACITRACIN 500 UNIT/GM OINT 28.4 GM TUBE TOPICAL SCH ×2 (08:46→22:04)
[2017-05-06] MEDS: cloNIDine HCL 0.1 MG TAB PO SCH (08:47)
[2017-05-06] MEDS: QUEtiapine 100 MG TAB PO SCH ×2 (08:47→16:12)
[2017-05-06] MEDS: THIAMINE 100 MG TAB PO SCH (08:47)
[2017-05-06 09:04] LABS: ALT 135 U/L (21-72); AST 104 U/L (17-59); Alkaline Phosphatase 69 U/L (38-126); Anion Gap 10 mmol/L; Blood Urea Nitrogen 15 mg/dL (9-20); Calcium 9.6 mg/dL (8.4-10.2); Carbon Dioxide 26 mmol/L (22-30); Chloride 104 mmol/L (98-107); Glucose 106 mg/dL (74-99); Non-African American GFR(MDRD) >60 (>60 ml/min/1.73 sqM); Potassium 4.5 mmol/L (3.5-5.1); Sodium 140 mmol/L (137-145); Total Bilirubin 0.4 mg/dL (0.2-1.3); Total Protein 8.4 g/dL (6.3-8.2)
--- NOTE | 2017-05-06 13:59 | P.PN ---
Progress Note - Text Interval History: Patient is a 32-year-old male who is being seen as a transfer from Dr. Barboza. Patient was admitted on May 01 he was homeless and had been drinking 1-2/5 of alcohol a day. Patient states that he was not using any other drugs. Patient reports that he is doing well on the Seroquel and states he is eating well and sleeping about 5 hours a night. He reports no further suicidal ideation and states that he was having suicidal thoughts on admission. Patient states he is less depressed but reports he is still anxious and when I asked him about this he states that he worries a lot. Patient wondered what of his prior medications he should be started on which were Neurontin BuSpar and Wellbutrin. Patient states that he is to have a family meeting tomorrow with his mother and states that he will be returning to live with her and is hoping to have an apartment of his own system. He reports no urges to use alcohol. Mental Status: Appearance/Attitude: Patient is neatly and appropriately dressed , and makes good eye contact and is cooperative. Behavior: Patient does not display any psychomotor agitation or retardation. Speech/Language: Patient is spontaneous and his speech is of normal volume and rhythm and he is coherent. Thought Process: Patient is goal directed and there is no evidence of circumstantial or tangential thought and no loose associations or flight of ideas. Thought Content: Patient denies any auditory or visual hallucinations no delusions or paranoid ideation or elicited. Patient sleep being about 5 hours a night and states he is eating well. Patient reports he is not feeling suicidal at this time. Suicidal/Homicidal Ideation: Patient denies any current suicidal or homicidal ideation. Sensorium/Cognition: Patient is alert and oriented to person place and time and his memory is grossly intact. Mood/Affect: Patient's mood is stable and he continues to report anxiety which she describes as worrying and his affect is appropriate. Insight/Judgement: Patient's insight and judgment are fair. Assessment: Patient and I discussed his response to the Seroquel and he feels that he is doing well on it, not feeling as depressed and no current continued suicidal ideation. Patient reports no side effects from the medication. Patient also discussed with me the clonidine which a been started due to his elevated pulse and blood pressure on admission secondary to his alcohol withdrawal symptoms and patient has no history of hypertension. Patient reported that he was still feeling anxious which she describes as worrying about things and wondered if his BuSpar could be restarted. Plan: Patient will continue on Seroquel 100 mg twice a day and 200 mg at bedtime and due to the patient's complaints about anxiety and worrying I will restart his BuSpar at 7.5 mg 3 times a day. Patient and I discussed not restarting his Neurontin or Wellbutrin as I did not see a need for it. I will also discontinue the clonidine as the patient has no history of hypertension and his vital signs are currently stable and the clonidine was held this morning. Patient is to have a family meeting tomorrow and will consider discharge than with follow-up at [facility].
[2017-05-06] MEDS: busPIRone HCl 5 MG TAB PO SCH ×2 (15:05→22:04)
[2017-05-06] MEDS: QUEtiapine 200 MG TAB PO SCH (22:05)
[2017-05-07 07:18] VITALS: BP 123/83; PULSE 107; RESP 18
[2017-05-07] MEDS: busPIRone HCl 5 MG TAB PO SCH (08:44)
[2017-05-07] MEDS: PANTOPRAZOLE 40 MG TABLET PO SCH (08:44)
[2017-05-07] MEDS: QUEtiapine 100 MG TAB PO SCH (08:45)
[2017-05-07] MEDS: BACITRACIN 500 UNIT/GM OINT 28.4 GM TUBE TOPICAL SCH (08:56)
[2017-05-07] MEDS ORDERED: ACAMPROSATE CALCIUM 333 MG TABLET.DR PO SCH (09:00)
--- NOTE | 2017-05-07 10:49 | P.DS ---
Providers Date of admission: 05/01/17 11:44 Expected date of discharge: 05/07/17 Attending physician: Corinne Moses MD Consults: 05/01/17 12:08 Consult Physician Routine Consulting Provider: Jose Acuña Consult Reason/Comments: follow up H & P Do you want consulting provider notified?: Yes Primary care physician: Stated None Hospital Course: Discharge Diagnoses: Alcohol-induced depressive disorder with use; alcohol use disorder, severe Reason for Admission: Patient is a 32-year-old male who was admitted from the emergency room, he had recently been in the hospital but left [place] and then return to the emergency room and was admitted. Patient was using alcohol and reported depression and suicidal thoughts. Patient had recently been at the [facility] program in March for 2 weeks and states this in his he was discharged he relapsed with using alcohol. Patient has been drinking every day since that time using 1-2/5 of liquor per day. Patient was last seen at [facility] where he is followed in March 2017. Patient states that after he left [facility] in March he was homeless and was living in a tent for 5 months as he when living with his mother has gotten into arguments and difficulties with his stepfather. Patient was admitted due to suicidal ideation and complaints of depression and questionable compliance with his medications. Patient has had numerous prior admissions since 2014 always very similar presentations of alcohol use, depression and suicidal ideation. Patient states that his mother is his payee but she wouldn't give him money and he would spend all of his money on alcohol. Patient did report that he had been on acamprosate in the past with good response when he took the medication. Hospital Course: Patient was admitted on a voluntary basis, routine laboratory studies were ordered and a medical consultation was obtained. Patient was placed on routine observation and Ativan when necessary for withdrawal symptoms. Patient was also begun on clonidine due to an elevated blood pressure. Patient was ordered group and activity therapy and was started on Seroquel. Patient's Seroquel dose was slowly titrated to 100 mg twice a day and 200 mg at bedtime and the patient reported good response to this medication. Patient stated that he was sleeping well, was no longer having suicidal ideation and was feeling less depressed. Patient's clonidine was discontinued due to being held for low blood pressure and the patient has no history of hypertension as an outpatient so was discontinued. Patient reported that he was still feeling anxious and ruminating about worries about his future and so BuSpar was restarted at 7.5 mg 3 times a day. On the day of discharge I discussed with the patient how he responded to acamprosate in the past and he said he did well with it but when he stopped taking it he began drinking again. Patient was willing to retry this and so was started on 666 mg 3 times a day. Patient reported that he was no longer having any suicidal ideation, was discussing finding an apartment and moving in in several weeks that his mother had put in her name. He states that his mother is his payee. Patient reported he was feeling stable, no further suicidal ideation, no complaints of feeling depressed and states he was ready to leave the hospital. Discharge Mental Status:Appearance/Attitude: Patient was neatly and appropriately dressed, made good eye contact and was cooperative. Behavior: Patient did not display any psychomotor agitation or retardation. Speech/Language: Patient's speech was spontaneous and of normal volume and rhythm and he was coherent. Thought Process: Patient was goal-directed and there is no evidence of circumstantial or tangential thought and no loose associations or flight of ideas. Thought Content: Patient denied any auditory or visual hallucinations and no paranoid or delusional ideation were elicited. Patient reported he was no longer feeling depressed had been sleeping and eating well on the unit. Patient stated that he was no longer feeling depressed and that his worries and anxiety were fairly well-controlled. Suicidal/Homicidal Ideation: Patient denied any current suicidal or homicidal ideation. Sensorium/Cognition: Patient was alert and oriented to person, place, and time and his memory is grossly intact. Mood/Affect: Patient's mood is euthymic and his affect is appropriate. Insight/Judgement: Patient's insight and judgment are fair. Laboratory Last Values WBC 6.2 k/uL (3.8-10.6) 05/03/17 07:45 RBC 4.30 m/uL (4.30-5.90) 05/03/17 07:45 Hgb 14.5 gm/dL (13.0-17.5) 05/03/17 07:45 Hct 41.7 % (39.0-53.0) 05/03/17 07:45 MCV 96.9 fL (80.0-100.0) 05/03/17 07:45 MCH 33.7 pg (25.0-35.0) 05/03/17 07:45 MCHC 34.8 g/dL (31.0-37.0) 05/03/17 07:45 RDW 13.3 % (11.5-15.5) 05/03/17 07:45 Plt Count 187 k/uL (150-450) 05/03/17 07:45 Neutrophils % 47 % 05/02/17 07:53 Lymphocytes % 37 % 05/02/17 07:53 Monocytes % 9 % 05/02/17 07:53 Eosinophils % 3 % 05/02/17 07:53 Basophils % 1 % 05/02/17 07:53 Neutrophils # 2.5 k/uL (1.3-7.7) 05/02/17 07:53 Lymphocytes # 2.0 k/uL (1.0-4.8) 05/02/17 07:53 Monocytes # 0.5 k/uL (0-1.0) 05/02/17 07:53 Eosinophils # 0.2 k/uL (0-0.7) 05/02/17 07:53 Basophils # 0.1 k/uL (0-0.2) 05/02/17 07:53 Sodium 140 mmol/L (137-145) 05/06/17 08:28 Potassium 4.5 mmol/L (3.5-5.1) 05/06/17 08:28 Chloride 104 mmol/L (98-107) 05/06/17 08:28 Carbon Dioxide 26 mmol/L (22-30) 05/06/17 08:28 Anion Gap 10 mmol/L 05/06/17 08:28 BUN 15 mg/dL (9-20) 05/06/17 08:28 Creatinine 1.17 mg/dL (0.66-1.25) 05/06/17 08:28 Est GFR (MDRD) Af Amer >60 (>60 ml/min/1.73 sqM) 05/06/17 08:28 Est GFR (MDRD) Non-Af >60 (>60 ml/min/1.73 sqM) 05/06/17 08:28 Glucose 106 mg/dL (74-99) H 05/06/17 08:28 Calcium 9.6 mg/dL (8.4-10.2) 05/06/17 08:28 Magnesium 2.1 mg/dL (1.6-2.3) 05/02/17 07:53 Total Bilirubin 0.4 mg/dL (0.2-1.3) 05/06/17 08:28 GGT 178 U/L (15-73) H 05/02/17 07:53 AST 104 U/L (17-59) H 05/06/17 08:28 ALT 135 U/L (21-72) H 05/06/17 08:28 Alkaline Phosphatase 69 U/L (38-126) 05/06/17 08:28 Total Protein 8.4 g/dL (6.3-8.2) H 05/06/17 08:28 Albumin 4.8 g/dL (3.5-5.0) 05/06/17 08:28 Lipase 217 U/L (23-300) 05/02/17 07:53 Tumor Marker AFP 4.3 ng/mL (0.0-7.9) 05/06/17 08:28 TSH 3.280 mIU/L (0.465-4.680) 05/02/17 07:53 Urine Color Yellow 05/03/17 09:30 Urine Appearance Clear (Clear) 05/03/17 09:30 Urine pH 6.5 (5.0-8.0) 05/03/17 09:30 Ur Specific [place] 1.019 (1.001-1.035) 05/03/17 09:30 Urine Protein Trace (Negative) H 05/03/17 09:30 Urine Glucose (UA) Negative (Negative) 05/03/17 09:30 Urine Ketones Negative (Negative) 05/03/17 09:30 Urine Blood Negative (Negative) 05/03/17 09:30 Urine Nitrite Negative (Negative) 05/03/17 09:30 Urine Bilirubin Negative (Negative) 05/03/17 09:30 Urine Urobilinogen <2.0 mg/dL (<2.0) 05/03/17 09:30 Ur Leukocyte Esterase Negative (Negative) 05/03/17 09:30 Urine Opiates Screen Not Detected (NotDetected) 05/01/17 10:16 Ur Oxycodone Screen Not Detected (NotDetected) 05/01/17 10:16 Urine Methadone Screen Not Detected (NotDetected) 05/01/17 10:16 Ur Propoxyphene Screen Not Detected (NotDetected) 05/01/17 10:16 Ur Barbiturates Screen Detected (NotDetected) H 05/01/17 10:16 U Tricyclic Antidepress Not Detected (NotDetected) 05/01/17 10:16 Ur Phencyclidine Scrn Not Detected (NotDetected) 05/01/17 10:16 Ur Amphetamines Screen Not Detected (NotDetected) 05/01/17 10:16 U Methamphetamines Scrn Not Detected (NotDetected) 05/01/17 10:16 U Benzodiazepines Scrn Not Detected (NotDetected) 05/01/17 10:16 Urine Cocaine Screen Not Detected (NotDetected) 05/01/17 10:16 U Marijuana (THC) Screen Detected (NotDetected) H 05/01/17 10:16 Zinc 73 ug/dL (60-130) 05/02/17 11:34 Risk Assessment: Patient's risk assessment for self-harm is moderate secondary to his alcohol use, and noncompliance with medication. Discharge Plan: Patient will be discharged to live with his mother for several weeks until his apartment is ready. Patient will continue on Seroquel 100 mg twice a day and 200 mg at bedtime, BuSpar 7.5 mg 3 times a day and he will also continue on Campral 666 mg 3 times a day which was started today after she and I had a long discussion about his use of alcohol and the need for sobriety. Patient states that he had a good response to this when he was compliant with the medication and was interested in retrying it. Patient will also be given a prescriptions for omeprazole and thiamine and he was told to follow-up with his primary care physician in the next 2 weeks to reevaluate his need for any antihypertensive medication. Patient was encouraged to begin attending AA meetings on a daily basis and obtain a sponsor to maintain his sobriety. Patient will return to follow-up with [facility].] Patient Condition at Discharge: Stable Plan - Discharge Summary New Discharge Prescriptions: New Acamprosate Calcium [Campral] 666 mg PO TID 14 Days busPIRone HCL [Buspar] 7.5 mg PO TID #42 tab QUEtiapine [SEROquel] 100 mg PO 0900,1600 #28 tab QUEtiapine [SEROquel] 200 mg PO HS #14 tab Continue Omeprazole 40 mg PO W/BRKFST #14 Thiamine [Vitamin B-1] 100 mg PO DAILY #30 tab Discontinued Gabapentin 600 mg PO HS 28 Days QUEtiapine FUMARATE [SEROquel] 300 mg PO HS 28 Days HYDROcodone/APAP 7.5-325MG [Corinne 7.5-325] 1 tab PO Q6H PRN PRN Reason: Pain buPROPion XL [Wellbutrin XL] 150 mg PO DAILY QUEtiapine [SEROquel] 200 mg PO DAILY Gabapentin [Neurontin] 300 mg PO BID@0800,1200 busPIRone HCl [Buspar] 20 mg PO TID Discharge Medication List Acamprosate Calcium [Campral] 666 mg PO TID 14 Days 05/07/17 [Rx] Omeprazole 40 mg PO W/BRKFST #14 05/07/17 [Rx] QUEtiapine [SEROquel] 100 mg PO 0900,1600 #28 tab 05/07/17 [Rx] QUEtiapine [SEROquel] 200 mg PO HS #14 tab 05/07/17 [Rx] Thiamine [Vitamin B-1] 100 mg PO DAILY #30 tab 05/07/17 [Rx] busPIRone HCL [Buspar] 7.5 mg PO TID #42 tab 05/07/17 [Rx] Follow up Appointment(s)/Referral(s): [facility] [Outside] - 05/08/17 12:30 pm (05/08/17 @ 12:30 with Blossom Maloney 05/19 @ 13:30 with Rula Luciano ) Nonstaff,Physician [REFERRING] - 1-2 days Casie Larry PAC [REFERRING] - 2 Weeks (hepatitis C) Patient Instructions/Handouts: Depression (DC), Abuse of Alcohol (DC), Suicide Prevention for Adults (DC) Activity/Diet/Wound Care/Special Instructions: Diet and activity as tolerated. No alcohol or street drugs. Remove any firearms from the home. Follow up with outpatient provider as set up at time of discharge. Follow up with Primary Care DrJane in 1-2 days. Any medication refills needed, contact your Primary Care Dr. or Psychiatrist. Call crisis line at or [phone] if having thoughts of hurting yourself or others. Discharge Disposition: HOME SELF-CARE
[2017-05-07] MEDS: THIAMINE 100 MG TAB PO SCH (11:43)
[2017-05-07] MEDS: FOLIC ACID 1 MG TAB PO SCH (11:43)
[2017-05-07 15:36] LABS: LOG HCV IU/mL 6.11 (<1.08)
[2017-05-07 16:04] LABS: HCV Qualitative Result DETECTED (Not detected)
== END 2017-05-07 12:15 | disposition home or self-care (01) | DRG 881 ==
LOC: EC 06:48 → 3MHU 11:44
PROVIDERS: ADMIT Psychiatry & Neurology Psychiatry; ATTEND Psychiatry & Neurology Psychiatry
DX: F32.9 Major depressive disorder, single episode, unspecified (principal); R45.851 Suicidal ideations; F10.239 Alcohol dependence with withdrawal, unspecified; K62.5 Hemorrhage of anus and rectum; B18.2 Chronic viral hepatitis C; F10.229 Alcohol dependence with intoxication, unspecified; F12.10 Cannabis abuse, uncomplicated; F17.200 Nicotine dependence, unspecified, uncomplicated; F41.9 Anxiety disorder, unspecified; F90.9 Attention-deficit hyperactivity disorder, unspecified type; K21.9 Gastro-esophageal reflux disease without esophagitis; K29.20 Alcoholic gastritis without bleeding; G89.29 Other chronic pain; R03.0 Elevated blood-pressure reading, without diagnosis of hypertension; K57.90 Diverticulosis of intestine, part unspecified, without perforation or abscess without bleeding; F13.10 Sedative, hypnotic or anxiolytic abuse, uncomplicated; F11.10 Opioid abuse, uncomplicated; Z91.14 Patient's other noncompliance with medication regimen; Z59.0 Homelessness; Z79.899 Other long term (current) drug therapy; Z91.5 Personal history of self-harm
CPT/HCPCS: 80053; 80306; 81003; 82075; 82105; 82977; 83690; 83735; 84443; 84630; 85025; 85027; 87522; 87902; 99285

== ENCOUNTER 2017-09-19 13:28 | Emergency (ER) | payer OTHER ==
[2017-09-19] MEDS ORDERED: ONDANSETRON 4 MG/2 ML VIAL IVP STA (13:54)
[2017-09-19] MEDS ORDERED: SODIUM CHLORIDE 0.9% 1,000 ML IV STA (13:54)
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
[2017-09-19 14:23] LABS: Basophils # (A) 0.1 k/uL (0-0.2); Basophils % (A) 1 %; Eosinophils # (A) 0.3 k/uL (0-0.7); Eosinophils % (A) 3 %; HCT 44.1 % (39.0-53.0); HGB 14.2 gm/dL (13.0-17.5); Lymphocytes # (A) 2.1 k/uL (1.0-4.8); Lymphocytes % (A) 26 %; MCH 30.1 pg (25.0-35.0); MCHC 32.3 g/dL (31.0-37.0); MCV 93.2 fL (80.0-100.0); Mean Platelet Volume 8.9; Monocytes # (A) 0.4 k/uL (0-1.0); Monocytes % (A) 5 %; Neutrophils # (A) 5.1 k/uL (1.3-7.7); Neutrophils % (A) 63 %; Platelet Count 168 k/uL (150-450); RBC 4.73 m/uL (4.30-5.90); RDW 14.9 % (11.5-15.5); WBC 8.2 k/uL (3.8-10.6)
[2017-09-19 14:34] LABS: Appearance,Urine Clear (Clear); Bilirubin,Urine Negative (Negative); Blood,Urine Negative (Negative); Color,Urine Yellow; Glucose,Urine (UA) Negative (Negative); Ketones,Urine Negative (Negative); Leukocyte Esterase,Urine Negative (Negative); Nitrite,Urine Negative (Negative); Protein,Urine Trace (Negative); Urobilinogen,Urine <2.0 mg/dL (<2.0)
[2017-09-19 14:47] LABS: ALT 498 U/L (21-72); AST 138 U/L (17-59); Albumin 3.9 g/dL (3.5-5.0); Alkaline Phosphatase 72 U/L (38-126); Anion Gap 12 mmol/L; Blood Urea Nitrogen 14 mg/dL (9-20); Calcium 9.3 mg/dL (8.4-10.2); Carbon Dioxide 27 mmol/L (22-30); Chloride 105 mmol/L (98-107); Glucose 92 mg/dL (74-99); Sodium 144 mmol/L (137-145); Total Bilirubin 0.3 mg/dL (0.2-1.3); Total Protein 7.2 g/dL (6.3-8.2)
--- NOTE | 2017-09-19 15:09 | XR ---
EXAMINATION TYPE: XR chest 2V DATE OF EXAM: 09/19/2017 COMPARISON: NONE TECHNIQUE: PA and lateral views submitted. HISTORY: Syncope FINDINGS: The lungs are clear and there is no pneumothorax, pleural effusion, or focal pneumonia. IMPRESSION: 1. No acute process.
--- NOTE | 2017-09-19 15:10 | XR ---
EXAMINATION TYPE: XR KUB DATE OF EXAM: 09/19/2017 COMPARISON: 04/20/2017 HISTORY: Tenzin pain and nausea with vomiting TECHNIQUE: One view abdominal series FINDINGS: The osseous structures are intact. The bowel gas pattern is nonspecific. Lung bases are clear. IMPRESSION: 1. Nonspecific abdomen.
[2017-09-19 15:36] VITALS: BP 113/74; PULSE 63; RESP 16; TEMP 98.3
== END 2017-09-19 15:43 | disposition home or self-care (01) ==
LOC: EC 13:28
DX: R11.2 Nausea with vomiting, unspecified (principal); R74.8 Abnormal levels of other serum enzymes; F31.9 Bipolar disorder, unspecified; Z87.891 Personal history of nicotine dependence; Z79.899 Other long term (current) drug therapy
CPT/HCPCS: 99284; 96374; 96361 ×2; 36415; 93005; 80053; 85025; 81003; 87086; 71046; 74018; J2405

== ENCOUNTER 2018-03-12 19:43 | Inpatient (IN) | payer OTHER ==
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
[2018-03-12] MEDS ORDERED: HALOPERIDOL LACTATE 5 MG/ML 1 ML VIAL IM STA (20:32)
[2018-03-12] MEDS ORDERED: LORazepam 2 MG/ML INJ IM STA (20:32)
[2018-03-12] MEDS ORDERED: NALOXONE 0.4 MG/ML 1 ML VIAL IV PRN (21:07)
[2018-03-12] MEDS ORDERED: LORazepam 2 MG/ML INJ IV PRN ×2 (21:07→22:38)
[2018-03-12 21:18] LABS: Amphetamine Screen,Urine Not Detected (NotDetected); Barbiturate Screen,Urine Not Detected (NotDetected); Benzodiazepines Screen,Urine Not Detected (NotDetected); Cocaine Screen,Urine Not Detected (NotDetected); Methadone Screen, Urine Not Detected (NotDetected); Opiate Screen,Urine Not Detected (NotDetected); Oxycodone Screen, Urine Not Detected (NotDetected); Phencyclidine Screen,Urine Not Detected (NotDetected); Tricyclic Antidepressant,Urine Not Detected (NotDetected); Urn Cannabinoid Scrn Detected (NotDetected)
[2018-03-12] MEDS: 1: MVI, ADULT NO.4 WITH VIT K 10 ML, THIAMINE 100 MG, FOLIC ACID 1 MG in SODIUM CHLORIDE IV SCH ×4 (21:46)
[2018-03-12] MEDS ORDERED: THIAMINE 100 MG/ML 2 ML VIAL IM STA (22:38)
[2018-03-12] MEDS: LORazepam 2 MG/ML INJ IV PRN (23:09)
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
[2018-03-13] VITALS: BMI 21.4
[2018-03-13] MEDS: LORazepam 2 MG/ML INJ IV PRN ×11 (03:06→22:17)
[2018-03-13] MEDS: 1: MVI, ADULT NO.4 WITH VIT K 10 ML, THIAMINE 100 MG, FOLIC ACID 1 MG in SODIUM CHLORIDE IV SCH ×8 (07:45→18:15)
[2018-03-13 08:02] LABS: Basophils # (A) 0.1 k/uL (0-0.2); Basophils % (A) 1 %; Eosinophils # (A) 0.1 k/uL (0-0.7); Eosinophils % (A) 2 %; HCT 45.8 % (39.0-53.0); HGB 15.4 gm/dL (13.0-17.5); Lymphocytes # (A) 1.9 k/uL (1.0-4.8); Lymphocytes % (A) 32 %; MCH 30.8 pg (25.0-35.0); MCHC 33.6 g/dL (31.0-37.0); MCV 91.9 fL (80.0-100.0); Monocytes # (A) 0.4 k/uL (0-1.0); Monocytes % (A) 7 %; Neutrophils # (A) 3.4 k/uL (1.3-7.7); Neutrophils % (A) 57 %; Platelet Count 233 k/uL (150-450); RBC 4.99 m/uL (4.30-5.90); RDW 13.9 % (11.5-15.5); WBC 5.9 k/uL (3.8-10.6)
[2018-03-13 08:18] LABS: ALT 50 U/L (21-72); AST 50 U/L (17-59); Albumin 4.1 g/dL (3.5-5.0); Alkaline Phosphatase 61 U/L (38-126); Anion Gap 14 mmol/L; Blood Urea Nitrogen 14 mg/dL (9-20); Calcium 8.9 mg/dL (8.4-10.2); Carbon Dioxide 25 mmol/L (22-30); Chloride 103 mmol/L (98-107); Glucose 77 mg/dL (74-99); Sodium 142 mmol/L (137-145); Total Bilirubin 0.6 mg/dL (0.2-1.3); Total Protein 7.1 g/dL (6.3-8.2)
[2018-03-13 08:21] LABS: Potassium 4.1 mmol/L (3.5-5.1)
[2018-03-13] MEDS: THIAMINE 100 MG TAB PO SCH ×2 (11:58→16:22)
--- NOTE | 2018-03-13 13:12 | P.PN ---
Subjective Progress Note Date: 03/13/18 Principal diagnosis: ETOH abuse Patient is having withdrawals symptoms currently including the shakes, feeling his heart racing. Objective - Vital Signs Vital signs: Vital Signs Temp 98.2 F 03/12/18 21:54 Pulse 90 03/12/18 21:54 Resp 18 03/12/18 21:54 BP 100/51 03/12/18 21:54 Pulse Ox 98 03/12/18 21:54 Intake & Output 03/12/18 03/13/18 03/13/18 18:59 06:59 18:59 Weight 65.771 kg - Exam Constitutional: No acute distress, conversant, pleasant Eyes:Anicteric sclerae, moist conjunctiva, no lid-lag, PERRLA, ENMT: Oropharynx clear, no erythema, exudates Neck: Supple, FROM, no masses, or JVD, No carotid bruits, No thyromegaly Lungs: Clear to auscultation, Clear to percussion, Normal respiratory effort, no accessory muscle use Cardiovascular: Tachycardic, regular, No murmurs, gallops, or rubs, No peripheral edema Abdominal: Soft, Nontender, no guarding, rebound or rigidity, Normoactive bowel sounds, No hepatomegaly, No splenomegaly, No palpable mass Skin: Normal temperature, tone, texture, turgor, no induration, No subcutaneous nodules, No rash, lesions, No ulcers Extremities: No digital cyanosis, No clubbing, Pedal pulses intact and symmetrical, Radial pulses intact and symmetrical, No calf tenderness Psychiatric: Alert and oriented to person, place and time, appropriate affect, intact judgement Neuro: Bilateral hand/arm tremors, muscles Strength 5/5 in all 4 extremities, Sensation to light touch grossly present throughout, Cranial nerves II-XII grossly intact, no focal sensory deficits - Labs CBC & Chem 7: 03/13/18 07:33 03/13/18 07:33 Labs: Abnormal Lab Results - Last 24 Hours (Table) 03/12/18 Range/Units 21:00 U Marijuana (THC) Screen Detected H (NotDetected) Assessment and Plan Plan: Acute severe alcohol withdrawals IV fluid hydration Fall precautions seizure precautions Benzodiazepine per CIWA Thiamine, folic acid and multivitamins Haldol when necessary for any aggressive behavior Depression and suicidal ideation Suicide precautions Psychiatry consult Left forearm self-inflicted wounds Local wound care
[2018-03-13] MEDS ORDERED: THIAMINE 100 MG TAB PO SCH (13:15)
[2018-03-13] MEDS: QUEtiapine 200 MG TAB PO SCH (14:04)
[2018-03-13] MEDS: buPROPion 75 MG TAB PO SCH (14:05)
[2018-03-13] MEDS: PANTOPRAZOLE 40 MG TABLET PO SCH (14:05)
[2018-03-13] MEDS: busPIRone HCl 10 MG TAB PO SCH ×3 (14:05→20:15)
[2018-03-13] MEDS ORDERED: ONDANSETRON 4 MG/2 ML VIAL IVP PRN (17:11)
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
[2018-03-13] MEDS ORDERED: QUEtiapine 100 MG TAB PO SCH (21:00)
--- NOTE | 2018-03-13 21:01 | P.PN ---
Progress Note - Text Progress Note Date: 03/13/18 RN reported to me that patient has snorted his night does of seroquel , claiming that what he learned to do from before as it works faster. no immediate observed complications noted. it seems like this is what the patient does at home too.
[2018-03-14 00:12] VITALS: RESP 16
[2018-03-14] MEDS: LORazepam 2 MG/ML INJ IV PRN ×3 (02:18→06:18)
[2018-03-14] MEDS: 1: MVI, ADULT NO.4 WITH VIT K 10 ML, THIAMINE 100 MG, FOLIC ACID 1 MG in SODIUM CHLORIDE IV SCH ×4 (03:37)
[2018-03-14] MEDS ORDERED: HALOPERIDOL LACTATE 5 MG/ML 1 ML VIAL IM ONE (04:11)
[2018-03-14 07:45] VITALS: BP 132/72; PULSE 70; TEMP 98.1
[2018-03-14] MEDS ORDERED: LORazepam 2 MG/ML INJ IM PRN ×4 (08:11)
[2018-03-14] MEDS: QUEtiapine 200 MG TAB PO SCH (09:11)
[2018-03-14] MEDS: busPIRone HCl 10 MG TAB PO SCH ×2 (09:11→13:12)
[2018-03-14] MEDS: PANTOPRAZOLE 40 MG TABLET PO SCH (09:11)
[2018-03-14] MEDS: buPROPion 75 MG TAB PO SCH (09:12)
--- NOTE | 2018-03-14 13:11 | P.PN ---
Progress Note - Text Progress Note Date: 03/14/18 Interval history: Patient seen in [facility] today for a psychiatry follow- up. He reports that he was admitted after having been binging on alcohol for the last few days. He states that he was intoxicated and made a comment about suicide but relays that it was the alcohol. He reports that he wants to return to work which begins again at 4:00. He denies having any current alcohol withdrawal symptoms. He has follow-up with [facility] in place. Reports that he wants to keep his sobriety. Mental status exam: He is alert and cooperative. He does not show any agitation. His affect shows range. He describes his mood as a 7. He denies any thoughts of harm to self and reports that he is able to be safe. He relates that he would get help with he was struggling. He does not voice any thoughts of harm to others. He does not show any evidence of psychosis or agitation. He is future oriented, wanting to go to work tonight at 4 PM. Plan: We'll discontinue one-to-one sitter. Patient is okay for discharge from a psychiatric standpoint. I do not see any criteria for inpatient psychiatric admission. He has follow up with [facility] in place.
[2018-03-14] MEDS: THIAMINE 100 MG TAB PO SCH (13:12)
--- NOTE | 2018-03-14 13:34 | P.DS ---
Providers Date of admission: 03/13/18 13:24 Expected date of discharge: 03/14/18 Attending physician: Jerald Galindo MD Consults: 03/12/18 21:09 Consult Physician Urgent Consulting Provider: Corinne Moses Consult Reason/Comments: Depression and suicidal ideation Do you want consulting provider notified?: Yes 03/13/18 01:58 Consult Physician Urgent Consulting Provider: Psychiatry - [facility] Psychiatry Consult Reason/Comments: suicidal ideation Do you want consulting provider notified?: Already Contacted 03/13/18 13:13 Consult Physician Urgent Consulting Provider: Arnaud Walden Consult Reason/Comments: mh evmell Do you want consulting provider notified?: Yes Primary care physician: Christiano Santos MD Hospital Course: 33-year-old male with history of depression and alcohol abuse presented to the hospital for psychiatric evaluation. Patient was complaining of depression and suicidal ideation. He cut himself in his left forearm using a razor. He admitted to suicidal ideation. He denied any homicidal ideation. He also had been heavily drinking recently. He denied any headache, changes in his vision or hearing, no chest pain or trouble breathing, no nausea, vomiting, fevers or chills, no abdominal pain or GI bleeding. In the emergency department he was found to have acute severe alcohol intoxication, his alcohol level was 368, urinalysis screen was positive for marijuana. Otherwise negative for any other drugs. Patient was admitted to the hospital for further evaluation and treatment. He was started on IV fluids. CBC, CMP were both within normal limits. During the hospitalization patient went through alcohol withdrawal symptoms including shaking, tachycardia and slight hypertension. Symptoms lasted for 24-48 hours. Symptoms were treated with Ativan IV. During that period of time he was having depression and suicidal ideation. He had a sitter at the bedside with him the whole time. On the day of discharge depression symptoms and his suicidal ideations resolved. Patient was evaluated by psychiatry today and he was cleared for discharge, psychiatrist did not think the patient needs inpatient psychiatric admission. Patient will be discharged home in stable condition. He was counseled not to drink alcohol or use any other drugs. Discharge diagnoses Alcohol intoxication Delirium tremens Depression with suicidal ideations, resolved Plan - Discharge Summary Discharge Rx Participant: Yes New Discharge Prescriptions: Continue Acamprosate Calcium [Campral] 666 mg PO TID 14 Days tab busPIRone HCL [Buspar] 7.5 mg PO TID #42 tab Thiamine [Vitamin B-1] 100 mg PO DAILY #30 tab buPROPion [Wellbutrin] 75 mg PO DAILY busPIRone HCL 15 mg PO QID QUEtiapine FUMARATE [SEROquel] 300 mg PO HS Omeprazole 20 mg PO BID QUEtiapine [SEROquel] 200 mg PO QAM Discharge Medication List Acamprosate Calcium [Campral] 666 mg PO TID 14 Days tab 05/07/17 [Rx] Thiamine [Vitamin B-1] 100 mg PO DAILY #30 tab 05/07/17 [Rx] busPIRone HCL [Buspar] 7.5 mg PO TID #42 tab 05/07/17 [Rx] Omeprazole 20 mg PO BID 03/12/18 [History] QUEtiapine FUMARATE [SEROquel] 300 mg PO HS 03/12/18 [History] QUEtiapine [SEROquel] 200 mg PO QAM 03/12/18 [History] buPROPion [Wellbutrin] 75 mg PO DAILY 03/12/18 [History] busPIRone HCL 15 mg PO QID 03/12/18 [History] Follow up Appointment(s)/Referral(s): Christiano Santos MD [Primary Care Provider] - 1-2 days
== END 2018-03-14 14:17 | disposition home or self-care (01) | DRG 897 ==
LOC: EC 19:43 → 5MS5E 21:07 → OBSVTOIN 03-13 13:24 → 4MS4W 03-13 18:28
PROVIDERS: ADMIT Internal Medicine; ATTEND Internal Medicine
DX: F10.221 Alcohol dependence with intoxication delirium (principal); R45.851 Suicidal ideations; F10.24 Alcohol dependence with alcohol-induced mood disorder; B19.20 Unspecified viral hepatitis C without hepatic coma; K21.9 Gastro-esophageal reflux disease without esophagitis; G89.29 Other chronic pain; F90.9 Attention-deficit hyperactivity disorder, unspecified type; F41.9 Anxiety disorder, unspecified; S22.20XS Unspecified fracture of sternum, sequela; F10.231 Alcohol dependence with withdrawal delirium; Y90.8 Blood alcohol level of 240 mg/100 ml or more; Z79.899 Other long term (current) drug therapy; Z87.891 Personal history of nicotine dependence; Z87.828 Personal history of other (healed) physical injury and trauma; W26.8XXA Contact with other sharp object(s), not elsewhere classified, initial encounter; X78.9XXA Intentional self-harm by unspecified sharp object, initial encounter; Z81.1 Family history of alcohol abuse and dependence; Z81.8 Family history of other mental and behavioral disorders
CPT/HCPCS: 36415; 80053; 80306; 80320; 82075; 85025; 96365; 96366; 96372; 96375; 99284

== ENCOUNTER 2018-04-09 12:58 | Inpatient (IN) | payer MEDICAID, OTHER ==
[2018-04-09] MEDS ORDERED: LORazepam 2 MG/ML INJ IV STA ×5 (13:19→19:10)
[2018-04-09] MEDS ORDERED: cloNIDine HCL 0.1 MG TAB PO STA (13:20)
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
[2018-04-09] MEDS ORDERED: SODIUM CHLORIDE 0.9% 1,000 ML with MVI, ADULT NO.4 WITH VIT K 10 ML, THIAMINE 100 MG, F... IV ONE ×4 (13:30)
[2018-04-09 14:20] LABS: Basophils % (A) 1 %; Eosinophils # (A) 0.1 k/uL (0-0.7); Eosinophils % (A) 1 %; HCT 45.7 % (39.0-53.0); HGB 15.1 gm/dL (13.0-17.5); Lymphocytes # (A) 2.5 k/uL (1.0-4.8); Lymphocytes % (A) 29 %; MCH 30.9 pg (25.0-35.0); MCHC 33.1 g/dL (31.0-37.0); MCV 93.4 fL (80.0-100.0); Mean Platelet Volume 6.9; Monocytes # (A) 0.3 k/uL (0-1.0); Monocytes % (A) 4 %; Neutrophils # (A) 5.5 k/uL (1.3-7.7); Neutrophils % (A) 63 %; Platelet Count 227 k/uL (150-450); RBC 4.89 m/uL (4.30-5.90); RDW 14.6 % (11.5-15.5); WBC 8.7 k/uL (3.8-10.6)
[2018-04-09 14:31] LABS: INR 1.1 (<1.2); Partial Thromboplastin Time 24.6 sec (22.0-30.0); Prothrombin Time 10.8 sec (9.0-12.0)
[2018-04-09 14:44] LABS: ALT 273 U/L (21-72); AST 150 U/L (17-59); Acetaminophen <10.0 ug/mL; Albumin 4.8 g/dL (3.5-5.0); Alkaline Phosphatase 76 U/L (38-126); Anion Gap 12 mmol/L; Blood Urea Nitrogen 12 mg/dL (9-20); Calcium 9.4 mg/dL (8.4-10.2); Carbon Dioxide 27 mmol/L (22-30); Chloride 102 mmol/L (98-107); Glucose 97 mg/dL (74-99); Magnesium 2.1 mg/dL (1.6-2.3); Potassium 4.3 mmol/L (3.5-5.1); Salicylate <1.0 mg/dL; Sodium 141 mmol/L (137-145); Total Bilirubin 0.3 mg/dL (0.2-1.3); Total Protein 8.2 g/dL (6.3-8.2)
[2018-04-09 14:49] LABS: Alcohol 212 mg/dL
[2018-04-09 15:38] LABS: Amphetamine Screen,Urine Not Detected (NotDetected); Barbiturate Screen,Urine Detected (NotDetected); Benzodiazepines Screen,Urine Not Detected (NotDetected); Cocaine Screen,Urine Not Detected (NotDetected); Methadone Screen, Urine Not Detected (NotDetected); Opiate Screen,Urine Not Detected (NotDetected); Oxycodone Screen, Urine Not Detected (NotDetected); Phencyclidine Screen,Urine Not Detected (NotDetected); Tricyclic Antidepressant,Urine Not Detected (NotDetected); Urn Cannabinoid Scrn Detected (NotDetected)
[2018-04-09] MEDS ORDERED: ZIPRASIDONE 20 MG VIAL IM STA (16:11)
[2018-04-09] MEDS ORDERED: LORazepam 2 MG/ML INJ IV PRN ×3 (20:58)
[2018-04-09] MEDS ORDERED: MAGNESIUM HYDROXIDE 2,400 MG/10 ML CUP PO PRN (22:33)
[2018-04-09] MEDS ORDERED: MAG HYDROX/AL HYDROX/SIMETH 30 ML CUP PO PRN (22:33)
[2018-04-09] MEDS ORDERED: ZIPRASIDONE 20 MG VIAL IM PRN (22:33)
[2018-04-09] MEDS ORDERED: LORazepam 2 MG/ML INJ IM PRN (22:36)
[2018-04-09] MEDS: ACAMPROSATE CALCIUM 333 MG TABLET.DR PO SCH (23:00)
[2018-04-09] MEDS: QUEtiapine 100 MG TAB PO SCH (23:00)
[2018-04-10] MEDS: LORazepam 1 MG TAB PO PRN ×4 (05:12→22:54)
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
[2018-04-10] MEDS: ACAMPROSATE CALCIUM 333 MG TABLET.DR PO SCH (08:32)
[2018-04-10] MEDS: NICOTINE 14MG/24HR PATCH TRANSDERM SCH (08:32)
[2018-04-10] MEDS: PANTOPRAZOLE 40 MG TABLET PO SCH ×2 (08:32→20:10)
[2018-04-10] MEDS: THIAMINE 100 MG TAB PO SCH (08:32)
[2018-04-10] MEDS ORDERED: busPIRone HCl 5 MG TAB PO STA (09:42)
[2018-04-10] MEDS: MULTIVITAMINS, THERA 1 EACH TAB PO SCH (11:08)
[2018-04-10] MEDS: FOLIC ACID 1 MG TAB PO SCH (11:08)
[2018-04-10] MEDS: ACETAMINOPHEN TAB 325 MG TAB PO PRN ×2 (11:59→18:41)
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
[2018-04-10 13:39] LABS: Hemoglobin A1C 5.1 % (4.0-6.0)
[2018-04-10] MEDS: busPIRone HCl 5 MG TAB PO SCH ×2 (15:44→21:17)
[2018-04-10 16:53] LABS: Appearance,Urine Clear (Clear); Bilirubin,Urine Negative (Negative); Blood,Urine Negative (Negative); Color,Urine Light Yellow; Glucose,Urine (UA) Negative (Negative); Ketones,Urine Negative (Negative); Leukocyte Esterase,Urine Negative (Negative); Nitrite,Urine Negative (Negative); PH, Urine 6.5 (5.0-8.0); Protein,Urine Negative (Negative); Specific Gravity,Urine 1.011 (1.001-1.035); Urobilinogen,Urine <2.0 mg/dL (<2.0)
[2018-04-10] MEDS: QUEtiapine 100 MG TAB PO SCH (20:04)
[2018-04-11] MEDS: LORazepam 1 MG TAB PO PRN ×4 (05:17→23:09)
[2018-04-11] MEDS: THIAMINE 100 MG TAB PO SCH (07:59)
[2018-04-11] MEDS: busPIRone HCl 5 MG TAB PO SCH (07:59)
[2018-04-11] MEDS: PANTOPRAZOLE 40 MG TABLET PO SCH ×2 (07:59→20:17)
[2018-04-11] MEDS: NICOTINE 14MG/24HR PATCH TRANSDERM SCH (07:59)
[2018-04-11] MEDS: ACETAMINOPHEN TAB 325 MG TAB PO PRN ×3 (08:48→18:37)
--- NOTE | 2018-04-11 09:57 | P.PN ---
Progress Note - Text Interval history: The patient is found in the hallway he follows me to an interview room. He is well known to the inpatient service. He presented with suicidal ideation in the context of another alcohol relapse. He states that he was in [facility] just before coming here. He had cut his arm superficially prior to going to [facility]. He states he still has symptoms of anxiety and asks that his BuSpar be titrated further. He has been participating in the milieu. Vital signs reviewed he demonstrates some tachycardia his pressure is on the low side. He is encouraged to increase volume by drinking water. He has Ativan available to prevent alcohol withdrawal symptoms. Mental status exam: The patient is pleasant and cooperative. He is dressed in his own clothing hygiene grooming is adequate. He reports his mood is much improved. He reports feeling safe in the hospital. He is reporting no suicidal ideation intent or plan. He is reporting no homicidal ideation intent or plan. There is no report or evidence of psychosis. He does not appear hypomanic or manic. He demonstrates no verbal or physical aggressiveness he demonstrates no abnormal involuntary movements. Insight and judgment limited. He is oriented to person place and date. Affect is constricted. Plan: The patient's BuSpar will be titrated to 10 mg 3 times daily. His other medications will be continued as written. His vital signs still demonstrate some abnormality with tachycardia. We will reduce and eliminate the Ativan when possible. He is encouraged to hydrate with water during the day.
[2018-04-11] MEDS: MULTIVITAMINS, THERA 1 EACH TAB PO SCH (11:03)
[2018-04-11] MEDS: FOLIC ACID 1 MG TAB PO SCH (11:03)
[2018-04-11] MEDS: busPIRone HCl 10 MG TAB PO SCH ×2 (15:12→20:18)
[2018-04-11] MEDS: QUEtiapine 100 MG TAB PO SCH (20:18)
[2018-04-12] MEDS: LORazepam 1 MG TAB PO PRN ×2 (05:15→12:49)
[2018-04-12] MEDS: PANTOPRAZOLE 40 MG TABLET PO SCH ×2 (08:35→20:52)
[2018-04-12] MEDS: busPIRone HCl 10 MG TAB PO SCH ×3 (08:35→20:45)
[2018-04-12] MEDS: THIAMINE 100 MG TAB PO SCH (08:35)
[2018-04-12] MEDS: NICOTINE 14MG/24HR PATCH TRANSDERM SCH (09:19)
[2018-04-12] MEDS: ACETAMINOPHEN TAB 325 MG TAB PO PRN ×2 (09:30→13:55)
--- NOTE | 2018-04-12 10:01 | P.PN ---
Progress Note - Text Interval history: The patient is found at [facility] he follows me to an interview room. He reports that his mood is much improved. He states that he is trying to reduce the frequency of Ativan use. He reviewed his medicines that he was on at [facility] and we discussed those in some detail. He has interest in restarting the Wellbutrin. He has been selectively attending groups. He states that he is hoping to remaining sober. He states he was able to maintain sobriety for 7 months so that gives him hope that he is able to do that again. Mental status exam: The patient is alert he is dressed in his own clothing hygiene grooming are adequate. He has a bright affect. He is cooperative and pleasant. He states his mood is improved is reporting no suicidal or homicidal ideation intent or plan. He is endorsing no auditory or visual hallucinations or specific delusions. He demonstrates no evidence of psychosis hypomania or maciel. Insight and judgment improving. He demonstrates no verbal or physical aggressiveness. He is fully oriented to person place and date. Plan: The patient will continue on his current medication. We will monitor him for safety. I will reduce the frequency of the Ativan to 1 mg every 8 hours as needed. He is clinically stabilizing.
[2018-04-12] MEDS: MULTIVITAMINS, THERA 1 EACH TAB PO SCH (11:43)
[2018-04-12] MEDS: FOLIC ACID 1 MG TAB PO SCH (11:43)
[2018-04-12] MEDS: QUEtiapine 100 MG TAB PO SCH (20:45)
[2018-04-13] MEDS: LORazepam 1 MG TAB PO PRN (04:12)
[2018-04-13] MEDS: busPIRone HCl 10 MG TAB PO SCH ×3 (09:24→20:02)
[2018-04-13] MEDS: PANTOPRAZOLE 40 MG TABLET PO SCH ×2 (09:24→20:02)
[2018-04-13] MEDS: THIAMINE 100 MG TAB PO SCH (09:24)
[2018-04-13] MEDS: NICOTINE 14MG/24HR PATCH TRANSDERM SCH (09:24)
[2018-04-13] MEDS: buPROPion 75 MG TAB PO SCH (10:33)
[2018-04-13] MEDS: FOLIC ACID 1 MG TAB PO SCH (11:55)
[2018-04-13] MEDS: ACETAMINOPHEN TAB 325 MG TAB PO PRN ×2 (11:55→22:25)
[2018-04-13] MEDS: MULTIVITAMINS, THERA 1 EACH TAB PO SCH (11:55)
--- NOTE | 2018-04-13 12:21 | P.PN ---
Progress Note - Text Progress Note Date: 04/13/18 Interval History: Patient is a 33-year-old male who was seen today and he reports that he didn't tell me about his 2 admissions to [facility] because short -term memory is impaired. Patient states that he is not interested in any rehab programs because he has been there and again insisted that he was able to maintain his sobriety for 7 months. Patient also stated he doesn't like group therapy and only likes one on one therapy. Patient states that he wants to be restarted on Wellbutrin but only at 75 mg because this was beneficial to his depression, however the patient cannot elaborate on what symptoms of depression he is had in the past. Patient states that he continues to request Ativan when I asked him why he stated for withdrawal symptoms but then stated that he was no longer feeling and withdrawal. Patient declines restarting of Campral or the restart of ReVia. Mental Status: Appearance/Attitude: Patient is casually dressed and makes good eye contact and was cooperative Behavior: Patient did not exhibit any psychomotor agitation or retardation Speech/Language: Patient's speech was spontaneous and normal volume and rhythm and he is coherent Thought Process: Patient is goal-directed there is no evidence of loose association or flight of ideas Thought Content: Patient denies any auditory or visual hallucinations and no delusions or paranoid ideation were elicited. Patient states that he is no longer having any withdrawal symptoms, wanted his Wellbutrin restarted for depressive symptoms however he couldn't elaborate on what he meant by that. Patient states he sleeping and eating well. Patient states he is ready to return to his apartment and begin work again. Patient declined any referral for alcohol rehab. Suicidal/Homicidal Ideation: Patient denies any current suicidal or homicidal ideation Sensorium/Cognition: Patient is alert and oriented to person, place, and time and his recent and remote memory grossly intact Mood/Affect: Patient's mood is pleasant and his affect is appropriate Insight/Judgment: Patient's insight and judgment are fair Assessment: Patient has been taking Ativan [id number] for complaints of withdrawal but stated to me today that he is no longer in withdrawal, patient also requested a restart of Wellbutrin stating that it helped with his depressive symptoms in the past. He declined restarting Campral or ReVia or Antabuse. He also declined a referral for any inpatient alcohol rehab. Patient has been attending some groups or activities. Patient when confronted with the fact that he had been in [facility] twice since he left the medical floor in March to me that he didn't tell me because of his short-term memory loss Plan: Patient continued on BuSpar 10 mg 3 times a day, Seroquel 300 mg at bedtime and we'll restart Wellbutrin 75 mg in the morning and discontinue the Ativan as patient is no longer in withdrawal. I again discussed the patient the need to attend AA meetings, and remain sober. Will plan for discharge tomorrow.
[2018-04-13] MEDS: QUEtiapine 100 MG TAB PO SCH (20:02)
[2018-04-14 06:12] VITALS: BP 109/65; PULSE 68; RESP 15; TEMP 97.9
[2018-04-14] MEDS: busPIRone HCl 10 MG TAB PO SCH (07:47)
[2018-04-14] MEDS: PANTOPRAZOLE 40 MG TABLET PO SCH (07:47)
[2018-04-14] MEDS: buPROPion 75 MG TAB PO SCH (07:47)
[2018-04-14] MEDS: NICOTINE 14MG/24HR PATCH TRANSDERM SCH (08:25)
[2018-04-14] MEDS: THIAMINE 100 MG TAB PO SCH (08:26)
--- NOTE | 2018-04-14 08:51 | P.DS ---
Providers Date of admission: 04/09/18 22:11 Expected date of discharge: 04/14/18 Attending physician: Corinne Moses MD Consults: 04/09/18 22:33 Consult Physician Routine Consulting Provider: Jose Acuña Consult Reason/Comments: follow up H & P Do you want consulting provider notified?: Yes Primary care physician: Christiano Santos MD Hospital Course: Discharge Diagnosis: Alcohol-induced mood disorder; alcohol use disorder, moderate severity; cannabis use disorder, mild Reason for Admission: Patient presented to the emergency room intoxicated and reporting suicidal ideation. Patient states that he is been sober for a while, then admitted that he has been drinking for one week prior to his admission here in March. Patient states he's been using 1-2 fifths a day since his discharge in March. Patient was at that time on the medical floor. Patient states he hasn't been seen at [facility] for some time he is not sure when his last appointment was there. Patient states it may have been 3 months ago. Patient reports his current medications are Wellbutrin 75 mg in the morning and BuSpar 15 mg 4 times a day and states that he continued on Seroquel 300 mg at bedtime to 200 mg dose in the morning was switched to Geodon which there is no record. Patient states that he's been using alcohol since the age of 16 and his longest sobriety was for 7 months which she states began after his release here in May 2017 and states he restarted using alcohol after 7 months at one point drinking up to 3 fifth a day. Patient reports that he is feeling suicidal, not sleeping well feeling anxious and states that he's having withdrawal symptoms. He reports he is feeling nauseated, having diarrhea and doesn't feel well. He reports that he is also shaking. Patient states he's feeling depressed. Patient states he has a history of a diagnosis of bipolar disorder gives an unclear history of a manic episode at the age of 19. He states he is on Seroquel for sleep and a mood stabilizer due to this behavior. States that he sleeps less for several days and has a lot of energy these are the only symptoms she could relate. Patient denies any current psychotic symptoms and denies any in the past. Patient states that he has anxiety where he shakes and feels anxious. Patient has a long history of psychiatric admissions with at least 9 here and 7 in other locations. Patient also has numerous admissions to inpatient rehab programs he states the last was 1-1/2 years ago. He states that he's been receiving treatment since the age of 19. Patient states he has attempted suicide 1-2 times in the past by overdose. It was later discovered that the patient had also recently been admitted to [facility] in March after his recent discharge from the medical floor here at [place] as well as a another admission following that one with a discharge on April 06. Mental status on Admission: Appearance/Attitude: Patient is neatly groomed dressed in a hospital gown makes intermittent eye contact and was cooperative Behavior: Patient does not exhibit any psychomotor agitation or retardation and there were no obvious tremors or shakiness noted on exam Speech/Language: Patient's speech was spontaneous and normal volume and rhythm and he was coherent Thought Process: Patient was goal-directed there is no evidence of loose association or flight of ideas Thought Content: Patient denied any auditory or visual hallucinations, no delusions or paranoid ideation were elicited. Patient is complaining of feeling ill due to his withdrawal stating that he is feeling nauseated and has diarrhea. He states that he's feeling anxious and can't since still and needs to pace. Patient states he feels terrible and needs more Ativan. Patient states he has not been sleeping or eating because of his withdrawal symptoms. Suicidal/Homicidal Ideation: Patient denies any current suicidal or homicidal ideation Sensorium/Cognition: Patient is alert and oriented to person, place, time and his recent and remote memory are grossly intact Mood/Affect: Patient's mood is anxious and his affect is appropriate to his mood Insight/Judgment: Patient's insight and judgment are fair Hospital Course: Patient was admitted on a voluntary basis, placed on routine observation in group and activity therapy were ordered. Patient routine laboratory studies as well as a medical consultation. Patient was continued on Ativan on the psychiatric unit to prevent alcohol withdrawal symptoms. Patient requested that he be restarted on his Seroquel, it was restarted at 300 mg at bedtime and his BuSpar was also restarted and titrated to a dose of 10 mg 3 times a day. Initially the patient's Wellbutrin was not started but he requested it and so it was restarted at 75 mg in the morning. Patient continued to decline referral for alcohol inpatient rehab. Patient attended groups and activities and was anxious to be discharged and return home and work. Patient declined to restart of Campral, restart of ReVia or Antabuse all of which the patient did been on in the past. Patient reported he was no longer having any suicidal ideation, his mood had stabilized and he thought he was ready for discharge. Patient was encouraged to follow-up with his primary care physician regarding his elevated liver enzymes and whether or not to continue his Protonix. Allergies haloperidol [From Haldol] Adverse Reaction (Verified 04/13/18 20:07) Unknown per patient he has eps symptoms Laboratory Last Values WBC 8.7 k/uL (3.8-10.6) 04/09/18 14:05 RBC 4.89 m/uL (4.30-5.90) 04/09/18 14:05 Hgb 15.1 gm/dL (13.0-17.5) 04/09/18 14:05 Hct 45.7 % (39.0-53.0) 04/09/18 14:05 MCV 93.4 fL (80.0-100.0) 04/09/18 14:05 MCH 30.9 pg (25.0-35.0) 04/09/18 14:05 MCHC 33.1 g/dL (31.0-37.0) 04/09/18 14:05 RDW 14.6 % (11.5-15.5) 04/09/18 14:05 Plt Count 227 k/uL (150-450) 04/09/18 14:05 Neutrophils % 63 % 04/09/18 14:05 Lymphocytes % 29 % 04/09/18 14:05 Monocytes % 4 % 04/09/18 14:05 Eosinophils % 1 % 04/09/18 14:05 Basophils % 1 % 04/09/18 14:05 Neutrophils # 5.5 k/uL (1.3-7.7) 04/09/18 14:05 Lymphocytes # 2.5 k/uL (1.0-4.8) 04/09/18 14:05 Monocytes # 0.3 k/uL (0-1.0) 04/09/18 14:05 Eosinophils # 0.1 k/uL (0-0.7) 04/09/18 14:05 Basophils # 0.0 k/uL (0-0.2) 04/09/18 14:05 PT 10.8 sec (9.0-12.0) 04/09/18 14:05 INR 1.1 (<1.2) 04/09/18 14:05 APTT 24.6 sec (22.0-30.0) 04/09/18 14:05 Sodium 141 mmol/L (137-145) 04/09/18 14:05 Potassium 4.3 mmol/L (3.5-5.1) 04/09/18 14:05 Chloride 102 mmol/L (98-107) 04/09/18 14:05 Carbon Dioxide 27 mmol/L (22-30) 04/09/18 14:05 Anion Gap 12 mmol/L 04/09/18 14:05 BUN 12 mg/dL (9-20) 04/09/18 14:05 Creatinine 0.80 mg/dL (0.66-1.25) 04/09/18 14:05 Est GFR (CKD-EPI)AfAm >90 (>60 ml/min/1.73 sqM) 04/09/18 14:05 Est GFR (CKD-EPI)NonAf >90 (>60 ml/min/1.73 sqM) 04/09/18 14:05 Glucose 97 mg/dL (74-99) 04/09/18 14:[address] Glu mg/dL 100 04/10/18 08:25 Hemoglobin A1c 5.1 % (4.0-6.0) 04/10/18 08:25 Calcium 9.4 mg/dL (8.4-10.2) 04/09/18 14:05 Magnesium 2.1 mg/dL (1.6-2.3) 04/09/18 14:05 Total Bilirubin 0.3 mg/dL (0.2-1.3) 04/09/18 14:05 AST 150 U/L (17-59) H 04/09/18 14:05 ALT 273 U/L (21-72) H 04/09/18 14:05 Alkaline Phosphatase 76 U/L (38-126) 04/09/18 14:05 Ammonia 19 umol/L (<30) 04/09/18 14:23 Total Protein 8.2 g/dL (6.3-8.2) 04/09/18 14:05 Albumin 4.8 g/dL (3.5-5.0) 04/09/18 14:05 Triglycerides 116 mg/dL (<150) 04/10/18 08:25 Cholesterol 149 mg/dL (<200) 04/10/18 08:25 LDL Cholesterol, Calc 66 mg/dL (0-99) 04/10/18 08:25 HDL Cholesterol 60 mg/dL (40-60) 04/10/18 08:25 TSH 6.840 mIU/L (0.465-4.680) H 04/10/18 08:25 Free T4 0.91 ng/dL (0.78-2.19) 04/10/18 08:25 Urine Color Light Yellow 04/10/18 16:44 Urine Appearance Clear (Clear) 04/10/18 16:44 Urine pH 6.5 (5.0-8.0) 04/10/18 16:44 Ur Specific [place] 1.011 (1.001-1.035) 04/10/18 16:44 Urine Protein Negative (Negative) 04/10/18 16:44 Urine Glucose (UA) Negative (Negative) 04/10/18 16:44 Urine Ketones Negative (Negative) 04/10/18 16:44 Urine Blood Negative (Negative) 04/10/18 16:44 Urine Nitrite Negative (Negative) 04/10/18 16:44 Urine Bilirubin Negative (Negative) 04/10/18 16:44 Urine Urobilinogen <2.0 mg/dL (<2.0) 04/10/18 16:44 Ur Leukocyte Esterase Negative (Negative) 04/10/18 16:44 Salicylates <1.0 mg/dL 04/09/18 14:05 Urine Opiates Screen Not Detected (NotDetected) 04/09/18 13:05 Ur Oxycodone Screen Not Detected (NotDetected) 04/09/18 13:05 Urine Methadone Screen Not Detected (NotDetected) 04/09/18 13:05 Ur Propoxyphene Screen Not Detected (NotDetected) 04/09/18 13:05 Acetaminophen <10.0 ug/mL 04/09/18 14:05 Ur Barbiturates Screen Detected (NotDetected) H 04/09/18 13:05 U Tricyclic Antidepress Not Detected (NotDetected) 04/09/18 13:05 Ur Phencyclidine Scrn Not Detected (NotDetected) 04/09/18 13:05 Ur Amphetamines Screen Not Detected (NotDetected) 04/09/18 13:05 U Methamphetamines Scrn Not Detected (NotDetected) 04/09/18 13:05 U Benzodiazepines Scrn Not Detected (NotDetected) 04/09/18 13:05 Urine Cocaine Screen Not Detected (NotDetected) 04/09/18 13:05 U Marijuana (THC) Screen Detected (NotDetected) H 04/09/18 13:05 Serum Alcohol 212 mg/dL 04/09/18 14:05 Discharge Mental Status: Appearance/Attitude: Patient is casually dressed, makes good eye contact and was cooperative. Behavior: Patient did not exhibit any psychomotor agitation or retardation. Speech/Language: Patient's speech was spontaneous and normal volume and rhythm and he was coherent. Thought Process: Patient was goal-directed there is no evidence of loose association or flight of ideas Thought Content: Patient denied any auditory or visual hallucinations and no delusions or paranoid ideation were elicited. Patient stated he was no longer feeling depressed, had been sleeping and eating well. Suicidal/Homicidal Ideation: patient denied any current suicidal or homicidal ideation Sensorium/Cognition: patient was alert and oriented to person, place, and time and his recent and remote memory were grossly intact Mood/Affect: patient's mood was euthymic and his affect was appropriate Insight/Judgment: patient's insight and judgment are fair Risk Assessment: patient's risk for readmission is high should he not be compliant with follow-up and medication as well as return to using alcohol and/ or drugs Discharge Plan: Patient will return home to live in his own apartment, he will follow up with any mental health at [place]'s next appointment is on April 16. Patient states he has sufficient Wellbutrin to continue taking 75 mg in the morning and Seroquel 300 mg at bedtime. Patient will be given a prescription for BuSpar 10 mg 3 times a day, folic acid and thiamine. Patient will follow-up with his primary care physician regarding his elevated liver enzymes. Patient did not want to restart Campral and so none was started. Patient was encouraged to remain sober, attending AA meetings and follow up with [facility]. Patient Condition at Discharge: Stable Plan - Discharge Summary Discharge Rx Participant: Yes New Discharge Prescriptions: New busPIRone HCl [Buspar] 10 mg PO TID #42 tab Folic Acid 1 mg PO DAILY@1200 #28 tab Continue Omeprazole 20 mg PO BID buPROPion [Wellbutrin] 75 mg PO DAILY #30 tablet QUEtiapine FUMARATE [SEROquel] 300 mg PO HS #30 tab Thiamine [Vitamin B-1] 100 mg PO DAILY #28 tab Discontinued Acamprosate Calcium [Campral] 666 mg PO TID 14 Days tab QUEtiapine [SEROquel] 200 mg PO DAILY #30 tablet busPIRone HCL 15 mg PO QID Discharge Medication List Omeprazole 20 mg PO BID 03/12/18 [History] QUEtiapine FUMARATE [SEROquel] 300 mg PO HS #30 tab 03/14/18 [Rx] buPROPion [Wellbutrin] 75 mg PO DAILY #30 tablet 03/14/18 [Rx] Folic Acid 1 mg PO DAILY@1200 #28 tab 04/14/18 [Rx] Thiamine [Vitamin B-1] 100 mg PO DAILY #28 tab 04/14/18 [Rx] busPIRone HCl [Buspar] 10 mg PO TID #42 tab 04/14/18 [Rx] Follow up Appointment(s)/Referral(s): [facility] [Outside] - 04/16/18 12:00 pm (04-16-18 @ 12:00 with Jennifer Torrez 04-21-18 @ 2:[address] Child ) Christiano Santos MD [Primary Care Provider] - 1-2 days Patient Instructions/Handouts: Depression (DC), Abuse of Alcohol (DC), Suicide Prevention for Adults (DC) Activity/Diet/Wound Care/Special Instructions: Activity and diet as tolerated. Avoid the use of street drugs and alcohol. Remove all firearms from the home. Take all medications as prescribed. Follow up with your Primary Care Physician in one to two days. When you are in need of refills on your medications please contact your medical provider and/or your outpatient psychiatrist to have this done. Please go to the scheduled outpatient appointment for aftercare. If symptoms return or become worse call the crisis line and/ or go the nearest emergency room for an evaluation. l Discharge Disposition: HOME SELF-CARE
== END 2018-04-14 10:05 | disposition home or self-care (01) | DRG 897 ==
LOC: EC 12:58 → 3MHU 22:11
PROVIDERS: ADMIT Psychiatry & Neurology Psychiatry; ATTEND Psychiatry & Neurology Psychiatry
DX: F10.14 Alcohol abuse with alcohol-induced mood disorder (principal); R45.851 Suicidal ideations; F10.129 Alcohol abuse with intoxication, unspecified; F12.90 Cannabis use, unspecified, uncomplicated; F41.9 Anxiety disorder, unspecified; F90.9 Attention-deficit hyperactivity disorder, unspecified type; K21.9 Gastro-esophageal reflux disease without esophagitis; S51.811A Laceration without foreign body of right forearm, initial encounter; B19.20 Unspecified viral hepatitis C without hepatic coma; G89.29 Other chronic pain; R19.7 Diarrhea, unspecified; R74.8 Abnormal levels of other serum enzymes; F32.9 Major depressive disorder, single episode, unspecified; K57.90 Diverticulosis of intestine, part unspecified, without perforation or abscess without bleeding; Z79.899 Other long term (current) drug therapy; Z87.891 Personal history of nicotine dependence; Z91.19 Patient's noncompliance with other medical treatment and regimen; Z88.8 Allergy status to other drugs, medicaments and biological substances; Z81.8 Family history of other mental and behavioral disorders; Z81.1 Family history of alcohol abuse and dependence; W26.8XXA Contact with other sharp object(s), not elsewhere classified, initial encounter; Y90.7 Blood alcohol level of 200-239 mg/100 ml; Y92.9 Unspecified place or not applicable
CPT/HCPCS: 36415; 80053; 80061; 80306; 80320; 81003; 82075; 82140; 83036; 83520; 83735; 84439; 84443; 85025; 85610; 85730; 96365; 96366; 96372; 96375; 96376; 99285

== ENCOUNTER 2018-04-25 14:22 | Inpatient (IN) | payer OTHER ==
[2018-04-25] MEDS ORDERED: SODIUM CHLORIDE 0.9% 1,000 ML with MVI, ADULT NO.4 WITH VIT K 10 ML, THIAMINE 100 MG, F... IV ONE ×4 (14:54)
[2018-04-25] MEDS ORDERED: LORazepam 2 MG/ML INJ IV STA ×2 (14:54→16:07)
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
[2018-04-25] MEDS ORDERED: ONDANSETRON 4 MG/2 ML VIAL IVP STA (15:08)
[2018-04-25 15:29] LABS: Basophils % (A) 1 %; Eosinophils # (A) 0.2 k/uL (0-0.7); Eosinophils % (A) 2 %; HCT 49.7 % (39.0-53.0); Lymphocytes # (A) 3.2 k/uL (1.0-4.8); Lymphocytes % (A) 39 %; MCH 31.4 pg (25.0-35.0); MCHC 34.2 g/dL (31.0-37.0); MCV 91.8 fL (80.0-100.0); Mean Platelet Volume 6.9; Monocytes # (A) 0.3 k/uL (0-1.0); Monocytes % (A) 4 %; Neutrophils # (A) 4.4 k/uL (1.3-7.7); Neutrophils % (A) 53 %; Platelet Count 360 k/uL (150-450); RBC 5.42 m/uL (4.30-5.90); RDW 14.1 % (11.5-15.5); WBC 8.3 k/uL (3.8-10.6)
[2018-04-25 15:37] LABS: INR 1.1 (<1.2); Prothrombin Time 10.3 sec (9.0-12.0)
[2018-04-25 15:41] LABS: ALT 285 U/L (21-72); AST 235 U/L (17-59); Alkaline Phosphatase 97 U/L (38-126); Amylase 124 U/L (30-110); Anion Gap 20 mmol/L; Blood Urea Nitrogen 10 mg/dL (9-20); Calcium 9.6 mg/dL (8.4-10.2); Carbon Dioxide 20 mmol/L (22-30); Chloride 105 mmol/L (98-107); Glucose 114 mg/dL (74-99); Lipase 531 U/L (23-300); Magnesium 2.2 mg/dL (1.6-2.3); Potassium 4.1 mmol/L (3.5-5.1); Sodium 145 mmol/L (137-145); Total Bilirubin 0.5 mg/dL (0.2-1.3); Total Protein 9.4 g/dL (6.3-8.2)
[2018-04-25 15:54] LABS: Alcohol 257 mg/dL
[2018-04-25] MEDS ORDERED: NALOXONE 0.4 MG/ML 1 ML VIAL IV PRN (15:57)
[2018-04-25] MEDS ORDERED: LORazepam 2 MG/ML INJ IV PRN (15:59)
[2018-04-25] MEDS ORDERED: THIAMINE 100 MG/ML 2 ML VIAL IM STA (15:59)
[2018-04-25] MEDS ORDERED: SODIUM CHLORIDE 0.9% 1,000 ML IV SCH (16:00)
[2018-04-25] MEDS ORDERED: THIAMINE 100 MG TAB PO SCH (17:00)
[2018-04-25 18:24] LABS: Amphetamine Screen,Urine Not Detected (NotDetected); Barbiturate Screen,Urine Not Detected (NotDetected); Benzodiazepines Screen,Urine Detected (NotDetected); Cocaine Screen,Urine Not Detected (NotDetected); Methadone Screen, Urine Not Detected (NotDetected); Opiate Screen,Urine Not Detected (NotDetected); Oxycodone Screen, Urine Not Detected (NotDetected); Phencyclidine Screen,Urine Not Detected (NotDetected); Tricyclic Antidepressant,Urine Not Detected (NotDetected); Urn Cannabinoid Scrn Detected (NotDetected)
[2018-04-25] MEDS: LORazepam 2 MG/ML INJ IV PRN ×4 (18:28→23:24)
[2018-04-25 21:00] VITALS: BMI 24.5
[2018-04-25] MEDS ORDERED: QUEtiapine 100 MG TAB PO SCH (21:00)
[2018-04-25] MEDS: DIAZEPAM 5 MG TAB PO SCH ×2 (21:18→21:20)
[2018-04-25] MEDS: THIAMINE 100 MG TAB PO SCH (21:18)
[2018-04-25] MEDS: METOPROLOL TARTRATE 12.5 MG TAB PO SCH ×2 (21:18→21:20)
[2018-04-25] MEDS: PANTOPRAZOLE 40 MG TABLET PO SCH (21:19)
[2018-04-25] MEDS: busPIRone HCl 10 MG TAB PO SCH (21:19)
[2018-04-25] MEDS: ONDANSETRON 4 MG/2 ML VIAL IVP PRN (21:40)
[2018-04-26] MEDS: LORazepam 2 MG/ML INJ IV PRN ×6 (01:18→13:59)
[2018-04-26 08:14] VITALS: BP 109/74; PULSE 74; RESP 18; TEMP 98.4
[2018-04-26] MEDS: METOPROLOL TARTRATE 12.5 MG TAB PO SCH (08:15)
[2018-04-26] MEDS: busPIRone HCl 10 MG TAB PO SCH (08:15)
[2018-04-26] MEDS: PANTOPRAZOLE 40 MG TABLET PO SCH (08:16)
[2018-04-26] MEDS: DIAZEPAM 5 MG TAB PO SCH (08:19)
[2018-04-26] MEDS ORDERED: buPROPion 75 MG TAB PO SCH (09:00)
[2018-04-26] MEDS: THIAMINE 100 MG TAB PO SCH (10:48)
[2018-04-26] MEDS ORDERED: FOLIC ACID 1 MG TAB PO SCH (12:00)
[2018-04-26] MEDS: ONDANSETRON 4 MG/2 ML VIAL IVP PRN (14:05)
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
--- NOTE | 2018-04-26 17:44 | HP ---
HISTORY AND PHYSICAL DATE OF SERVICE: 04/26/2018. PRESENTING COMPLAINT: DTs. HISTORY OF PRESENTING COMPLAINT: This is a 33-year-old patient who follows with Dr. Spears. The patient was, not too long ago, about 10 days ago, discharged from the inpatient psychiatry unit here. Diagnosis was alcohol-induced mood disorder. The patient has gone back to drinking about 1 to 2 fifths per day and not taking his medication. Initially when he presented to the ER he was suicidal, depressed, and alcohol was 270, having DTs. The patient is put on Ativan protocol and also on Valium. He is feeling somewhat better after receiving the same. The patient is having trouble sleeping, a bit anxious. This morning the patient is not suicidal, when I came in he said he was not suicidal. He is feeling much better. He has had several attempts at rehab, going to different places including [facility]. The patient does get money from social security, but his mother buys the alcohol for him. When I walked in, the patient was all dressed up, keen to leave the hospital. REVIEW OF SYSTEMS: CONSTITUTIONAL: None. HEENT: None. RESPIRATORY: None. CARDIOVASCULAR: None. GASTROINTESTINAL: Heartburn. GENITOURINARY: None. MUSCULOSKELETAL: None. DERMATOLOGICAL: None. HEMATOLOGICAL: None. LYMPHATIC: None. PSYCHIATRY: Anxiety, depression. NEUROLOGIC: Had tremors earlier. PAST MEDICAL HISTORY: Alcohol-induced mood disorder, GERD, diverticulitis, hepatitis C. PAST SURGICAL HISTORY: No surgeries. SOCIAL HISTORY: The patient drinks 1 or 2 fifths per day. Marijuana occasionally. Lives by himself. Gets money for his alcohol from his mother. He did IV heroin 8 years ago. The patient also works about 20 hours a week at a [employer]. FAMILY HISTORY: His paternal grandfather had problems with addiction. HOME MEDICATIONS: 1. BuSpar 10 mg p.o. t.i.d. 2. Wellbutrin 75 mg p.o. daily. 3. Thiamine 100 mg a day. 4. Seroquel 300 mg at bedtime. 5. Omeprazole 20 mg b.i.d. 6. Folic acid 1 mg p.o. daily at noon. ALLERGIES: HALDOL. EXAMINATION: Temperature 98.1, pulse 100, respiration 20, blood pressure 103/75, pulse 95 percent on room air. GENERAL: Average built, sitting up, a bit anxious-appearing. EYES: Pupils equal. Conjunctivae normal. HEENT: External nose and ears normal. Oral cavity normal. NECK: JVD not raised. Mass not palpable. Respiratory effort normal. LUNGS: Fair air entry. CARDIOVASCULAR: 1st and 2nd sounds normal. No edema. ABDOMEN: Soft, nontender. Liver and spleen not palpable. LYMPHATICS: No lymph palpable in the neck or axillae. PSYCHIATRY: Alert and oriented x3. Mood and affect anxious-appearing. NEUROLOGICAL: Pupils equal. Cranial nerves grossly intact. Power and sensation grossly intact. INVESTIGATIONS: White count 8.3, hemoglobin 17, potassium 4.1, BUN and creatinine normal. AST 235, ALT 285, amylase 124, lipase 534. Urine drug screen positive for benzodiazepine and marijuana. Serum alcohol was 257. ASSESSMENT: 1. Acute alcohol withdrawal. 2. Acute alcohol intoxication, present on admission. 3. Mild acute pancreatitis secondary to alcoholism. 4. Chronic hepatitis C and also alcoholic hepatitis. 5. Chronic marijuana recreational use. 6. Chronic insomnia, multifactorial. 7. Gastroesophageal reflux disease. PLAN: Psychiatry, was consulted. The patient is put on CIWA scale. Home medications are resumed. IV fluids. The patient also was put on Valium and a small dose of Lopressor to control the sympathetic drive. The patient is not suicidal anymore. The patient is counseled at length about cessation of alcohol and use other lifestyle changes, example trying to get a job, to be involved with positive people, and attend alcoholic anonymous. MMODL / IJN: [id number] /
--- NOTE | 2018-04-26 22:20 | DS ---
DISCHARGE SUMMARY DATE OF ADMISSION: 04/26/2018. DATE OF DISCHARGE: 04/26/2018. FINAL DIAGNOSES: 1. Acute alcohol withdrawal. 2. Acute alcohol intoxication. 3. Mild acute pancreatitis secondary to alcoholism. 4. Chronic hepatitis C and also alcoholic hepatitis. 5. Chronic marijuana recreational use. 6. Chronic insomnia, multifactorial. 7. Gastroesophageal reflux disease. HOSPITAL COURSE: This patient has had long-standing history of alcoholism, yet again presented with alcohol intoxication, suicidal ideation. By the time he got sober, he was not suicidal anymore. Seen by Dr. Moses from Psychiatry. Okayed to go home. I had a very lengthy talk with the patient today. I did ask him to go stay with mother for a short time and then go and try to enroll in the rehab place. PHYSICAL EXAMINATION: Lungs fair entry. Cardiovascular: 1st and 2nd sounds normal. Psych: Patient is slightly anxious. DISCHARGE MEDICATIONS: 1. Prilosec 20 mg b.i.d. 2. Seroquel 300 mg q.h.s. 3. Wellbutrin 75 mg p.o. daily. 4. Folic acid 1 mg p.o. at noon. 5. Thiamine 100 mg a day. 6. Buspirone 10 mg p.o. t.i.d. 7. Valium 5 mg p.o. q.8 for 3 doses, then q.12 for 4 doses. 8. Antabuse 500 mg p.o. daily for 7 days, then 250 mg a day. 9. Lopressor 12.5 p.o. t.i.d. for a total of 9 doses. FOLLOWUP: With Dr. Christiano Santos in 2 days, Dr. Luis from GI in 1 week for hepatitis C. The patient is not to drive for [address] Santos. MMJACKL / IJN: [id number] /
== END 2018-04-26 16:30 | disposition left against medical advice (07) | DRG 894 ==
LOC: EC 14:22 → 4MS4W 15:57 → OBSVTOIN 04-26 08:38
PROVIDERS: ADMIT Hospitalist; ATTEND Hospitalist
DX: F10.231 Alcohol dependence with withdrawal delirium (principal); K85.20 Alcohol induced acute pancreatitis without necrosis or infection; R45.851 Suicidal ideations; F10.24 Alcohol dependence with alcohol-induced mood disorder; F12.10 Cannabis abuse, uncomplicated; Y90.8 Blood alcohol level of 240 mg/100 ml or more; K70.10 Alcoholic hepatitis without ascites; B18.2 Chronic viral hepatitis C; F32.9 Major depressive disorder, single episode, unspecified; F51.04 Psychophysiologic insomnia; F90.9 Attention-deficit hyperactivity disorder, unspecified type; K21.9 Gastro-esophageal reflux disease without esophagitis; Z87.891 Personal history of nicotine dependence; Z60.2 Problems related to living alone; F11.11 Opioid abuse, in remission; Z81.3 Family history of other psychoactive substance abuse and dependence; Z79.899 Other long term (current) drug therapy; Z88.8 Allergy status to other drugs, medicaments and biological substances; Z71.41 Alcohol abuse counseling and surveillance of alcoholic; Z62.810 Personal history of physical and sexual abuse in childhood
CPT/HCPCS: 36415; 80053; 80306; 80320; 82075; 82150; 83690; 83735; 85025; 85610; 96365; 96366; 96372; 96375; 96376; 99284

== ENCOUNTER 2021-04-06 15:49 | Emergency (ER) | payer OTHER ==
[2021-04-06 15:58] VITALS: BP 125/82; PULSE 126; RESP 18; TEMP 98
[2021-04-06] MEDS ORDERED: LORazepam 2 MG/ML INJ IV PRN ×2 (16:36)
[2021-04-06] MEDS ORDERED: THIAMINE 100 MG/ML 2 ML VIAL IM STA (16:36)
[2021-04-06 16:48] LABS: Glucose,Whole Blood 112 mg/dL (75-99)
[2021-04-06] MEDS ORDERED: THIAMINE 100 MG TAB PO SCH (17:30)
[2021-04-06 19:09] LABS: Amphetamine Screen,Urine Not Detected (NotDetected); Barbiturate Screen,Urine Detected (NotDetected); Benzodiazepines Screen,Urine Detected (NotDetected); Cocaine Screen,Urine Not Detected (NotDetected); Methadone Screen, Urine Not Detected (NotDetected); Opiate Screen,Urine Not Detected (NotDetected); Oxycodone Screen, Urine Not Detected (NotDetected); Phencyclidine Screen,Urine Not Detected (NotDetected); Tricyclic Antidepressant,Urine Not Detected (NotDetected); Urn Cannabinoid Scrn Detected (NotDetected)
[2021-04-06] MEDS: LORazepam 2 MG/ML INJ IV PRN ×3 (19:09→23:17)
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
== END 2021-04-07 03:39 ==
LOC: EC 15:49
DX: R45.851 Suicidal ideations (principal); F10.129 Alcohol abuse with intoxication, unspecified; F19.10 Other psychoactive substance abuse, uncomplicated; R00.0 Tachycardia, unspecified; K21.9 Gastro-esophageal reflux disease without esophagitis; F31.9 Bipolar disorder, unspecified; F41.9 Anxiety disorder, unspecified; F17.200 Nicotine dependence, unspecified, uncomplicated; F12.90 Cannabis use, unspecified, uncomplicated; Y90.0 Blood alcohol level of less than 20 mg/100 ml
CPT/HCPCS: 82075; 36415; 93005; 80306; 96374; 96376; 96372; 99285; J2060 ×2; J3411

== ENCOUNTER 2021-05-04 13:47 | Emergency (ER) | payer OTHER ==
[2021-05-04 14:38] VITALS: TEMP 98.4
[2021-05-04] MEDS ORDERED: SODIUM CHLORIDE 0.9% 1,000 ML IV STA (15:10)
[2021-05-04] MEDS ORDERED: LORazepam 2 MG/ML INJ IV STA ×2 (15:10→19:37)
[2021-05-04 16:06] LABS: Basophils % (A) 1 %; Eosinophils % (A) 1 %; HCT 48.9 % (39.0-53.0); HGB 16.4 gm/dL (13.0-17.5); Hypochromasia Slight; Lymphocytes # (A) 1.5 k/uL (1.0-4.8); Lymphocytes % (A) 27 %; MCH 33.1 pg (25.0-35.0); MCHC 33.4 g/dL (31.0-37.0); Macrocytosis Slight; Mean Platelet Volume 7.6; Monocytes # (A) 0.2 k/uL (0-1.0); Monocytes % (A) 3 %; Neutrophils # (A) 3.7 k/uL (1.3-7.7); Neutrophils % (A) 67 %; Platelet Count 256 k/uL (150-450); Poikilocytosis Slight; RBC 4.94 m/uL (4.30-5.90); RDW 15.4 % (11.5-15.5); WBC 5.5 k/uL (3.8-10.6)
[2021-05-04 16:17] LABS: ALT 65 U/L (4-49); AST 102 U/L (17-59); African American GFR (CKD) >90 (>60 ml/min/1.73 sqM); Albumin 3.8 g/dL (3.5-5.0); Alkaline Phosphatase 143 U/L (38-126); Amylase 60 U/L (30-110); Anion Gap 12 mmol/L; Blood Urea Nitrogen 8 mg/dL (9-20); Calcium 7.4 mg/dL (8.4-10.2); Carbon Dioxide 23 mmol/L (22-30); Chloride 106 mmol/L (98-107); Glucose 102 mg/dL (74-99); Lipase 181 U/L (23-300); Magnesium 1.6 mg/dL (1.6-2.3); Non-African American GFR(CKD) >90 (>60 ml/min/1.73 sqM); Potassium 3.3 mmol/L (3.5-5.1); Sodium 141 mmol/L (137-145); Total Bilirubin 0.2 mg/dL (0.2-1.3); Total Protein 6.8 g/dL (6.3-8.2)
[2021-05-04 16:25] LABS: Alcohol 320 mg/dL
[2021-05-04] MEDS ORDERED: CALCIUM GLUCONATE 1 GM in SODIUM CHLORIDE 0.9% 100 ML IVPB ONE (16:37)
[2021-05-04 18:58] VITALS: PULSE 80
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
[2021-05-04 20:54] VITALS: BP 116/82; RESP 18
== END 2021-05-04 20:50 | disposition home or self-care (01) ==
LOC: EC 13:47
DX: F10.129 Alcohol abuse with intoxication, unspecified (principal); K21.9 Gastro-esophageal reflux disease without esophagitis; F90.9 Attention-deficit hyperactivity disorder, unspecified type; F41.9 Anxiety disorder, unspecified; F31.9 Bipolar disorder, unspecified; F17.200 Nicotine dependence, unspecified, uncomplicated; F12.90 Cannabis use, unspecified, uncomplicated; Y90.8 Blood alcohol level of 240 mg/100 ml or more
CPT/HCPCS: 99284; 96365; 96375; 96376; 96361; 93005; 80053; 82150; 83690; 83735; 85025; G0480; J2060; J0610; 80320

== ENCOUNTER 2021-05-06 13:59 | Inpatient (IN) | payer OTHER ==
[2021-05-06] MEDS ORDERED: ONDANSETRON 4 MG/2 ML VIAL IVP STA (14:13)
[2021-05-06] MEDS ORDERED: SODIUM CHLORIDE 0.9% 1,000 ML IV ONE (14:14)
[2021-05-06] MEDS ORDERED: SODIUM CHLORIDE 0.9% 500 ML 500 ML IV ONE (14:14)
[2021-05-06] MEDS ORDERED: THIAMINE 100 MG/ML 2 ML VIAL IM STA (14:15)
[2021-05-06] MEDS ORDERED: LORazepam 2 MG/ML INJ IV STA (14:16)
[2021-05-06 14:37] LABS: Basophils % (A) 1 %; Eosinophils % (A) 0 %; HCT 45.7 % (39.0-53.0); HGB 15.6 gm/dL (13.0-17.5); Lymphocytes # (A) 2.4 k/uL (1.0-4.8); Lymphocytes % (A) 36 %; MCH 33.2 pg (25.0-35.0); MCHC 34.1 g/dL (31.0-37.0); MCV 97.5 fL (80.0-100.0); Mean Platelet Volume 7.1; Monocytes # (A) 0.2 k/uL (0-1.0); Monocytes % (A) 3 %; Neutrophils # (A) 3.9 k/uL (1.3-7.7); Neutrophils % (A) 58 %; Platelet Count 256 k/uL (150-450); RBC 4.69 m/uL (4.30-5.90); RDW 14.8 % (11.5-15.5); WBC 6.8 k/uL (3.8-10.6)
[2021-05-06 14:46] LABS: ALT 63 U/L (4-49); AST 103 U/L (17-59); African American GFR (CKD) >90 (>60 ml/min/1.73 sqM); Albumin 4.8 g/dL (3.5-5.0); Alkaline Phosphatase 176 U/L (38-126); Anion Gap 17 mmol/L; Blood Urea Nitrogen 8 mg/dL (9-20); Calcium 9.3 mg/dL (8.4-10.2); Carbon Dioxide 23 mmol/L (22-30); Chloride 101 mmol/L (98-107); Glucose 113 mg/dL (74-99); Magnesium 2.1 mg/dL (1.6-2.3); Non-African American GFR(CKD) >90 (>60 ml/min/1.73 sqM); Potassium 4.4 mmol/L (3.5-5.1); Sodium 141 mmol/L (137-145); Total Bilirubin 0.5 mg/dL (0.2-1.3); Total Protein 8.6 g/dL (6.3-8.2)
[2021-05-06 14:57] LABS: Alcohol 338 mg/dL
[2021-05-06] MEDS: LORazepam 2 MG/ML INJ IV PRN ×4 (15:55→23:52)
[2021-05-06] MEDS: SODIUM CHLORIDE 0.9% 1,000 ML with MVI, ADULT NO.4 WITH VIT K 10 ML, THIAMINE 100 MG, F... IV ONE ×8 (15:56→17:39)
[2021-05-06 20:26] LABS: Amphetamine Screen,Urine Not Detected (NotDetected); Barbiturate Screen,Urine Not Detected (NotDetected); Benzodiazepines Screen,Urine Detected (NotDetected); Cocaine Screen,Urine Not Detected (NotDetected); Methadone Screen, Urine Not Detected (NotDetected); Opiate Screen,Urine Not Detected (NotDetected); Oxycodone Screen, Urine Not Detected (NotDetected); Phencyclidine Screen,Urine Not Detected (NotDetected); Tricyclic Antidepressant,Urine Not Detected (NotDetected); Urn Cannabinoid Scrn Detected (NotDetected)
[2021-05-06] MEDS: THIAMINE 100 MG TAB PO SCH (22:03)
[2021-05-07] MEDS: ONDANSETRON 4 MG/2 ML VIAL IVP PRN ×4 (02:05→23:14)
[2021-05-07] MEDS: LORazepam 2 MG/ML INJ IV PRN ×6 (02:13→21:26)
[2021-05-07] MEDS: THIAMINE 100 MG TAB PO SCH ×2 (06:52→17:01)
[2021-05-07] MEDS: SODIUM CHLORIDE 0.9% 1,000 ML IV SCH (10:38)
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
[2021-05-07] MEDS: FOLIC ACID 1 MG TAB PO SCH (14:00)
[2021-05-07] MEDS: diazePAM 5 MG TAB PO SCH ×2 (14:00→21:05)
[2021-05-07] MEDS: NON FORMULARY DRUG (Buprenorphine Hcl/Naloxone Hcl [Suboxone 8 Mg-2 Mg Sl Film] 1 EACH Fil SUBLINGUAL SCH ×2 (15:56→21:25)
[2021-05-07] MEDS: busPIRone HCl 10 MG TAB PO SCH ×2 (15:56→21:05)
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
[2021-05-07] MEDS: QUEtiapine 25 MG TAB PO SCH (21:05)
[2021-05-07] MEDS: FAMOTIDINE 20 MG/2 ML VIAL IV SCH (21:05)
[2021-05-08] MEDS: SODIUM CHLORIDE 0.9% 1,000 ML IV SCH ×2 (01:02→14:45)
[2021-05-08] MEDS: LORazepam 2 MG/ML INJ IV PRN ×4 (04:34→21:56)
[2021-05-08] MEDS: ONDANSETRON 4 MG/2 ML VIAL IVP PRN (07:37)
[2021-05-08] MEDS: THIAMINE 100 MG TAB PO SCH ×2 (08:18→17:07)
[2021-05-08] MEDS: busPIRone HCl 10 MG TAB PO SCH ×3 (08:18→21:15)
[2021-05-08] MEDS: diazePAM 5 MG TAB PO SCH ×2 (08:18→21:15)
[2021-05-08] MEDS: FOLIC ACID 1 MG TAB PO SCH (08:18)
[2021-05-08] MEDS: FAMOTIDINE 20 MG/2 ML VIAL IV SCH ×2 (08:18→19:30)
[2021-05-08] MEDS: NON FORMULARY DRUG (Buprenorphine Hcl/Naloxone Hcl [Suboxone 8 Mg-2 Mg Sl Film] 1 EACH Fil SUBLINGUAL SCH ×3 (08:29→21:14)
[2021-05-08 11:50] LABS: African American GFR (CKD) 126.9 (60.0-200.0); Albumin 3.6 g/dL (3.80-4.90); Albumin/Globulin Ratio 1.24 (1.60-3.17); Anion Gap 9.7 mmol/L (4.00-12.00); BUN/Creat Ratio 13.33 Ratio (12.00-20.00); Calcium 8.9 mg/dL (8.7-10.3); Carbon Dioxide 27.3 mmol/L (21.6-31.8); Globulin 2.9 g/dL (1.6-3.3); Non-African American GFR(CKD) 109.5 (60.0-200.0); Potassium 3.5 mmol/L (3.5-5.5); Total Bilirubin 1.1 mg/dL (0.2-1.2); Total Protein 6.5 g/dL (6.2-8.2)
--- NOTE | 2021-05-08 16:26 | P.PN ---
Subjective Progress Note Date: 05/08/21 Patient is a 36 old male with a known history of GERD, severe alcohol use, ADD/ADHD, anxiety/depression/bipolar disorder and history of IV heroin use about 8 years ago and daily marijuana use presents to ER with alcohol intoxication. Patient complains of nausea and episodes of vomiting. Currently patient is still confused and altered. Denied any complaints of chest pain or shortness of breath. Patient denied any, soft abdominal pain.. Denied any dysuria or hematuria. Laboratory data showed WBC 6.8 hemoglobin 15.6 and pressures to 56 2141 potassium 4.4 chloride 101 bicarb 23 BUN 18 creatinine 0.7 AST 103 ALT 63 alk phos 176 UDS is positive for benzodiazepines and 110. Alcohol level was 338 on admission 05/08/2021 Patient is seen and evaluated in follow-up this morning continues with a suicide sitter at the bedside. Patient continues to have suicidal ideation and continues to state he is voluntarily willing to go to [facility] psych unit for further evaluation. 10 is on CIWA protocol and continues to require IV Ativan although less frequently. Patient states the severity of his symptoms are nausea which he has as needed and will continue. Patient states he is tolerating diet with no reports of vomiting but not much of an appetite secondary to the continued nausea. Encouraged oral intake. Will discontinue IV fluids. Review of systems: Constitutional: No reports of fatigue, fever, or chills Cardiovascular: No reports of chest pain or palpitations Respiratory: No reports of shortness of breath or cough GI: reports of nausea, no reports of vomiting, or diarrhea : No reports of dysuria or retention Neurovascular: No reports of weakness or numbness All medications have been reviewed Objective - Vital Signs Vital signs: Vital Signs Temp 98.5 F 05/08/21 07:01 Pulse 64 05/08/21 07:01 Resp 14 05/08/21 07:01 BP 115/75 05/08/21 07:01 Pulse Ox 95 05/08/21 07:01 Intake & Output 05/07/21 05/08/21 05/08/21 18:59 06:59 18:59 Intake Total 600 900 Balance 600 900 Intake: IV 600 Sodium Chloride 0.9% 1, 600 000 ml @ 75 mls/hr IV . [id number] VINCENT Rx#:[id number] Oral 900 Other: Voiding Method Toilet Toilet # Voids 2 - Exam Patient is lying in the bed comfortably, no acute distress, asleep but easily arousable, alert and oriented x3. HEENT: Normocephalic. Neck is supple. Pupils reactive. Nostrils clear. Oral cavity is moist. Neck reveals no JVD, carotid bruits, or thyromegaly. CHEST EXAMINATION: Trachea is central. Symmetrical expansion. Lung freitas clear to auscultation and percussion. CARDIAC: Normal S1, S2 with no gallops. No murmurs ABDOMEN: Soft. Bowel sounds normal. No organomegaly. No abdominal bruits. Extremities: reveal no edema. No clubbing or cyanosis Neurologically awake, alert, oriented x3 with well-coordinated movements. No focal deficits noted Skin: No rash or skin lesions. Psychiatric: Cooperative. Continues to have suicidal thoughts, denies wanting to hurt others Musculoskeletal: No joint swelling or deformity. Normal range of motion. - Labs CBC & Chem 7: 05/06/21 Unknown 05/08/21 06:30 Assessment and Plan Assessment: Acute alcohol intoxication Nausea and vomiting possible alcoholic gastritis. Transaminitis likely alcoholic hepatitis GERD Anxiety/depression/bipolar disorder UDS positive for benzodiazepines and marijuana Heavy alcohol use Nicotine dependence DVT prophylaxis with SCDs Plan: Recommend to continue with current medications and CIWA protocol and monitor for any signs of withdrawal. Patient has received a dose of IV Ativan although less frequently today. Patient states the severity of his symptoms of withdrawal is nausea. Will continue with Zofran as needed and encouraged oral intake. IV fluids discontinued. Patient states he continues to have suicidal ideations with no thoughts currently of wanting to harm himself or others. Continue with suicide sitter at the bedside and psych has evaluated the patient recommending inpatient psychiatric evaluation once medically stable. Patient is requiring inpatient status secondary to continued withdrawals requiring CIWA protocol and IV Ativan. Patient will require more than two night hospitalization to monitor closely for withdrawals and ensure medical stability prior to transfer to psych unit for further evaluation. Patient Is agreeable to this. Patient is unable to leave AGAINST MEDICAL ADVICE and will be required to have a petition insert if attempting to do so. Home medications have been resumed. Psychiatry is following. Possible transfer to psychiatric unit in the next 24 hours. Continue to follow closely.
[2021-05-08] MEDS: QUEtiapine 25 MG TAB PO SCH (21:15)
[2021-05-09] MEDS: THIAMINE 100 MG TAB PO SCH (07:48)
[2021-05-09] MEDS: diazePAM 5 MG TAB PO SCH (07:48)
[2021-05-09] MEDS: FAMOTIDINE 20 MG/2 ML VIAL IV SCH (07:48)
[2021-05-09] MEDS: FOLIC ACID 1 MG TAB PO SCH (07:48)
[2021-05-09] MEDS: busPIRone HCl 10 MG TAB PO SCH (07:48)
[2021-05-09] MEDS: NON FORMULARY DRUG (Buprenorphine Hcl/Naloxone Hcl [Suboxone 8 Mg-2 Mg Sl Film] 1 EACH Fil SUBLINGUAL SCH (08:01)
--- NOTE | 2021-05-09 10:45 | P.DS ---
Providers Date of admission: 05/08/21 12:17 Expected date of discharge: 05/09/21 Attending physician: Reynaldo Marin Consults: 05/06/21 14:19 Consult Physician Urgent Consulting Provider: Jonatan Flores Consult Reason/Comments: Suicidal ideations Do you want consulting provider notified?: Already Contacted [facility] Course: Final Diagnosis Acute alcohol intoxication Nausea and vomiting possible alcoholic gastritis. Transaminitis likely alcoholic hepatitis GERD Anxiety/depression/bipolar disorder UDS positive for benzodiazepines and marijuana Heavy alcohol use Nicotine dependence DVT prophylaxis with SCDs Discharge disposition Patient is being transferred in a stable condition with guarded prognosis to [address] unit for further psychiatric evaluation. Patient will follow-up with Dr. Candelaria in the outpatient setting upon discharge. Patient is to continue with oral Zofran as needed for nausea. Total time taken is greater than 35 minutes. Hospital course Patient is a 36 old male with a known history of GERD, severe alcohol use, ADD/ADHD, anxiety/depression/bipolar disorder and history of IV heroin use about 8 years ago and daily marijuana use presents to ER with alcohol intoxication. Patient complains of nausea and episodes of vomiting. Currently patient is still confused and altered. Denied any complaints of chest pain or shortness of breath. Patient denied any, soft abdominal pain.. Denied any dysuria or hematuria. Laboratory data showed WBC 6.8 hemoglobin 15.6 and pressures to 56 2141 potassium 4.4 chloride 101 bicarb 23 BUN 18 creatinine 0.7 AST 103 ALT 63 alk phos 176 UDS is positive for benzodiazepines and 110. Alcohol level was 338 on admission 05/08/2021 Patient is seen and evaluated in follow-up this morning continues with a suicide sitter at the bedside. Patient continues to have suicidal ideation and continues to state he is voluntarily willing to go to [facility] psych unit for further evaluation. 10 is on CIWA protocol and continues to require IV Ativan although less frequently. Patient states the severity of his symptoms are nausea which he has as needed and will continue. Patient states he is tolerating diet with no reports of vomiting but not much of an appetite secondary to the continued nausea. Encouraged oral intake. Will discontinue IV fluids. 05/09/2021 Patient is seen in follow-up this morning no acute overnight issues noted. Suicide sitter remains at the bedside. Patient has not required IV Ativan and is maintained on Valium and denies any further episodes of loss. Patient is anticipating going to mental health unit for further evaluation. Currently no reports of chest pain, shortness of breath, or palpitations. Patient is afebrile. No reports of nausea or vomiting and patient is tolerating diet. Patient will be transferred to [address] [place] [address] unit today. On exam vital signs are stable. Cardio S1, S2 are muffled. Respiratory system shows diminished breath sounds at the bases with no wheezing or rhonchi noted. Abdomen is soft and nontender. Nervous system shows no focal deficits. Please refer to medication reconciliation sheet for a list of medications. Patient Condition at Discharge: Stable Plan - Discharge Summary Discharge Rx Participant: No New Discharge Prescriptions: New busPIRone HCl [Buspar] 10 mg PO TID tab Folic Acid 1 mg PO DAILY tab Famotidine [Pepcid] 20 mg PO BID #60 tablet diazePAM [Valium] 10 mg PO BID tab Ondansetron Odt [Zofran Odt] 4 mg PO Q8HR PRN #20 tab PRN Reason: Nausea QUEtiapine [SEROquel] 25 mg PO HS tab Thiamine [Vitamin B-1] 100 mg PO BID-W/MEALS tab Continue Buprenorphine HCl/Naloxone HCl [Suboxone 8 mg-2 mg Sl Film] 1 film SL TID Discharge Medication List Buprenorphine HCl/Naloxone HCl [Suboxone 8 mg-2 mg Sl Film] 1 film SL TID 04/06/21 [History] Famotidine [Pepcid] 20 mg PO BID #60 tablet 05/09/21 [Rx] Folic Acid 1 mg PO DAILY tab 05/09/21 [Rx] Ondansetron Odt [Zofran Odt] 4 mg PO Q8HR PRN #20 tab 05/09/21 [Rx] QUEtiapine [SEROquel] 25 mg PO HS tab 05/09/21 [Rx] Thiamine [Vitamin B-1] 100 mg PO BID-W/MEALS tab 05/09/21 [Rx] busPIRone HCl [Buspar] 10 mg PO TID tab 05/09/21 [Rx] diazePAM [Valium] 10 mg PO BID tab 05/09/21 [Rx] Follow up Appointment(s)/Referral(s): Arnaud Candelaria MD [Primary Care Provider] - 1-2 days Discharge Disposition: TRANSFER TO PSYCH HOSP/UNIT
[2021-05-09 12:22] VITALS: BP 111/72; PULSE 53; RESP 17; TEMP 97.9
== END 2021-05-09 15:22 | DRG 897 ==
LOC: EC 13:59 → 5NMEDONC 14:19 → OBSVTOIN 05-08 12:17
PROVIDERS: ADMIT Internal Medicine; ATTEND Internal Medicine
DX: F10.129 Alcohol abuse with intoxication, unspecified (principal); R45.851 Suicidal ideations; F17.200 Nicotine dependence, unspecified, uncomplicated; F31.9 Bipolar disorder, unspecified; F41.9 Anxiety disorder, unspecified; F60.3 Borderline personality disorder; F90.9 Attention-deficit hyperactivity disorder, unspecified type; K21.9 Gastro-esophageal reflux disease without esophagitis; K70.10 Alcoholic hepatitis without ascites; Y90.8 Blood alcohol level of 240 mg/100 ml or more; Z59.0 Homelessness; F11.10 Opioid abuse, uncomplicated; G89.29 Other chronic pain; B19.20 Unspecified viral hepatitis C without hepatic coma
CPT/HCPCS: 80053; 80306; 80320; 82075; 83735; 85025; 87635

== ENCOUNTER 2021-05-09 14:47 | Inpatient (IN) | payer MEDICAID, OTHER ==
[2021-05-09] MEDS ORDERED: ACETAMINOPHEN TAB 325 MG TAB PO PRN (16:45)
[2021-05-09] MEDS ORDERED: MAG HYDROX/AL HYDROX/SIMETH 30 ML CUP PO PRN (16:45)
[2021-05-09] MEDS ORDERED: MAGNESIUM HYDROXIDE 2,400 MG/10 ML CUP PO PRN (16:45)
[2021-05-09] MEDS ORDERED: flUPHENAZine 2.5 MG/ML (MDV) 10 ML VIAL IM PRN (16:52)
[2021-05-09] MEDS ORDERED: LORazepam 2 MG/ML INJ IM PRN (16:59)
[2021-05-09] MEDS ORDERED: diphenhydrAMINE 25 MG CAP PO PRN (17:00)
[2021-05-09] MEDS ORDERED: ONDANSETRON ODT 4 MG TAB PO PRN (17:00)
[2021-05-09] MEDS: busPIRone HCl 10 MG TAB PO SCH ×2 (17:33→22:35)
[2021-05-09] MEDS: NON FORMULARY DRUG (Buprenorphine Hcl/Naloxone Hcl [Suboxone 8 Mg-2 Mg Sl Film] 1 EACH Fil SUBLINGUAL SCH ×2 (17:33→20:55)
[2021-05-09] MEDS: THIAMINE 100 MG TAB PO SCH (17:35)
[2021-05-09] MEDS: diazePAM 5 MG TAB PO SCH (20:59)
[2021-05-09] MEDS: FAMOTIDINE 20 MG TAB PO SCH (20:59)
[2021-05-09] MEDS ORDERED: QUEtiapine 25 MG TAB PO SCH (21:00)
[2021-05-10] MEDS: NON FORMULARY DRUG (Buprenorphine Hcl/Naloxone Hcl [Suboxone 8 Mg-2 Mg Sl Film] 1 EACH Fil SUBLINGUAL SCH ×3 (07:56→21:20)
[2021-05-10] MEDS: THIAMINE 100 MG TAB PO SCH ×2 (07:57→16:43)
[2021-05-10] MEDS: diazePAM 5 MG TAB PO SCH ×2 (07:57→21:05)
[2021-05-10] MEDS: FAMOTIDINE 20 MG TAB PO SCH ×2 (07:57→21:07)
[2021-05-10] MEDS: FOLIC ACID 1 MG TAB PO SCH (07:57)
[2021-05-10] MEDS: busPIRone HCl 10 MG TAB PO SCH (07:57)
[2021-05-10] MEDS: buPROPion 75 MG TAB PO SCH (09:54)
[2021-05-10 09:57] LABS: Chol/HDL Ratio 2.01
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
[2021-05-10] MEDS: MULTIVITAMINS, THERA 1 EACH TAB PO SCH (10:46)
[2021-05-10 12:05] VITALS: BMI 24.0
[2021-05-10 13:02] LABS: ALT 60 U/L (4-49); AST 96 U/L (17-59); African American GFR (CKD) >90 (>60 ml/min/1.73 sqM); Albumin 4.3 g/dL (3.5-5.0); Alkaline Phosphatase 96 U/L (38-126); Anion Gap 10 mmol/L; Blood Urea Nitrogen 12 mg/dL (9-20); Calcium 9.7 mg/dL (8.4-10.2); Carbon Dioxide 27 mmol/L (22-30); Chloride 100 mmol/L (98-107); Glucose 98 mg/dL (74-99); Non-African American GFR(CKD) >90 (>60 ml/min/1.73 sqM); Potassium 3.8 mmol/L (3.5-5.1); Sodium 137 mmol/L (137-145); Total Bilirubin 0.6 mg/dL (0.2-1.3); Total Protein 7.5 g/dL (6.3-8.2)
[2021-05-10] MEDS: busPIRone HCl 5 MG TAB PO SCH ×2 (15:04→21:05)
[2021-05-10] MEDS: ACAMPROSATE CALCIUM 333 MG TABLET.DR PO SCH ×2 (15:04→22:27)
[2021-05-10 15:08] LABS: Hemoglobin A1C 4.9 % (4.0-6.0)
[2021-05-10] MEDS: QUEtiapine 50 MG TAB PO SCH (22:28)
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
[2021-05-11] MEDS: busPIRone HCl 5 MG TAB PO SCH ×4 (08:00→21:20)
[2021-05-11] MEDS: FAMOTIDINE 20 MG TAB PO SCH ×2 (08:00→21:20)
[2021-05-11] MEDS: THIAMINE 100 MG TAB PO SCH ×2 (08:00→17:32)
[2021-05-11] MEDS: diazePAM 5 MG TAB PO SCH (08:00)
[2021-05-11] MEDS: FOLIC ACID 1 MG TAB PO SCH (08:00)
[2021-05-11] MEDS: MULTIVITAMINS, THERA 1 EACH TAB PO SCH (08:00)
[2021-05-11] MEDS: ACAMPROSATE CALCIUM 333 MG TABLET.DR PO SCH ×3 (08:35→22:08)
[2021-05-11] MEDS: buPROPion 75 MG TAB PO SCH (08:35)
[2021-05-11] MEDS: NON FORMULARY DRUG (Buprenorphine Hcl/Naloxone Hcl [Suboxone 8 Mg-2 Mg Sl Film] 1 EACH Fil SUBLINGUAL SCH ×4 (08:48→22:08)
--- NOTE | 2021-05-11 09:32 | P.PN ---
Progress Note - Text Progress Note Date: 05/11/21 Interval History: Patient was seen wandering the hallways and was directable and agreeable to sp wilian with contract technical writer in the office. Patient claims that he slept better last night with the increase in his Seroquel. He claims that his withdrawal symptoms have gradually been improving and was agreeable to continue on with the tapering off of the Valium. He states that he has been trying to go to groups and participate as best as he can. He continues to state that he can stop alcohol whenever he wants to and continues to refuse rehab. He states that instead he would be interested in a sober house. He states that he is still having anxiety and mild depression and was requesting to have his BuSpar increased to 4 times daily. He claims have improving appetite. At this time patient denies any suicidal or homical ideations, intent or plan. Patient denies any auditory, visual hallucinations and denies any paranoia or delusions. Patient denies any side effects from the medications and has been compliant with meds. Mental Status Exam: General Appearance: Patient appears to be stated age is alert, attempts to cooperate. Patient appears to have improving hygiene Behavior: Patient is calmly lying in bed without any agitated behavior. Attempts to cooperate Speech: Patient's speech is fluent and nonpressured. Talkative Mood/Affect: Patient reports their mood is improving midlly, still complains of ongoing anxiety, affect is congruent Suicidality/Homicidality: Patient denies having any homicidal ideation intent or plan. He reports no suicidal thoughts no intent or plan. Perceptions: Patient denies any visual hallucinations and denies any auditory hallucinations Though content/process: There is no evidence of any delusional thought content. more logical today. focused on his medications. Memory and concentration: AOX3, grossly intact for the purposes of this session. Judgment and insight: poor, improving mildly Assessment Depressive disorder unspecified, rule out major depressive disorder versus bipolar disorder versus alcohol-induced mood disorder. Alcohol use disorder, severe History of opiate abuse Cannabis use disorder mild Nicotine dependence Plan: -Patient continues to meet criteria for inpatient psychiatric admission for symptom stabilization and safety. Patient has signed adult voluntary form and medication consent and was placed in patient's chart. -Medications: Continue with Seroquel 50 mg daily at bedtime for mood stabilization/insomnia, Valium decreased down to 2 mg twice a day for alcohol withdrawal for 1 more day and then discontinue on Friday. Continue with Wellbutrin 75 mg daily for mood. Increase BuSpar to 15 mg 4 times a day for anx iety. Continue with acamprosate 666 mg 3 times a day for alcohol cravings. -When necessary Ativan and Prolixin for agitation/aggression. -CIWA protocol with Ativan PRN for ETOH withdrawal -NRT - nicotine patch -SW on board for discharge planning. Encouraged the patient to participate in milieu. He continues to refuse rehab at this time and would rather go to a sober house. Likely discharge Friday.
[2021-05-11] MEDS: LORazepam 1 MG TAB PO PRN (12:35)
[2021-05-11] MEDS: diazePAM 2 MG TAB PO SCH (21:20)
[2021-05-11] MEDS: QUEtiapine 50 MG TAB PO SCH (23:44)
[2021-05-12] MEDS: NON FORMULARY DRUG (Buprenorphine Hcl/Naloxone Hcl [Suboxone 8 Mg-2 Mg Sl Film] 1 EACH Fil SUBLINGUAL SCH ×3 (08:36→21:02)
[2021-05-12] MEDS: ACAMPROSATE CALCIUM 333 MG TABLET.DR PO SCH ×3 (08:36→21:02)
[2021-05-12] MEDS: FOLIC ACID 1 MG TAB PO SCH (08:37)
[2021-05-12] MEDS: THIAMINE 100 MG TAB PO SCH ×2 (08:37→17:11)
[2021-05-12] MEDS: FAMOTIDINE 20 MG TAB PO SCH ×2 (08:37→20:26)
[2021-05-12] MEDS: buPROPion 75 MG TAB PO SCH (08:37)
[2021-05-12] MEDS: MULTIVITAMINS, THERA 1 EACH TAB PO SCH (08:37)
[2021-05-12] MEDS: busPIRone HCl 5 MG TAB PO SCH ×4 (08:37→21:02)
[2021-05-12] MEDS: diazePAM 2 MG TAB PO SCH ×2 (08:43→20:26)
--- NOTE | 2021-05-12 19:41 | PN ---
PROGRESS NOTE DATE OF SERVICE: 05/12/2021. CHIEF COMPLAINT: The patient presented to the ED with alcohol intoxication. He stated he became increasingly depressed because of uncontrolled drinking. INTERVAL HISTORY: Patient has been doing fair. He had a quiet day yesterday. He comes out on the unit. He will interact some with others. Generally he has a quiet manner. He said that he was making efforts to attend groups. He did attend one group briefly yesterday. Overall, he said that anxiety and depression were less. CIWA scores yesterday were zero. He slept fair last night. Today he has been up. He again has been out some in the day area. He said he will continue to make efforts towards groups, though so far he has not made a group today. He was reporting some anxiety and has had three CIWA scores of 5 today. Vital signs have been in a normal range, with his last vital signs at 0636 hours of BP 112/78, pulse 80 and regular, temperature 97.9, respirations 16. The patient discussed his plans to [place] [facility] and hopefully a referral to a sober living home. He says today that things have continued to go better for him. He has not had any specific complaints or problems with his medications. MENTAL STATUS: Patient sat with a little restlessness. He gave fairly good eye contact. He answered questions with brief responses. His thoughts were clear. His affect was somewhat blunted, though he had a friendly quiet manner. His mood was reserved. He did not appear to be significantly distressed. There was no indication of thought disorder. He was denying thoughts of harm at the time of the interview. On cognitive exam he was oriented and alert. ASSESSMENT: I will continue the current diagnosis and treatment plan. I will continue psychotropic medications the same. The patient is on a tapering of his Valium related to withdrawal issues. His other psychotropics will continue the same. I would anticipate his being discharged fairly soon with referral [place] [facility]. LINDSAY / TRUPTI: [id number] /
[2021-05-12] MEDS: LORazepam 1 MG TAB PO PRN (21:10)
[2021-05-12] MEDS: QUEtiapine 50 MG TAB PO SCH (23:14)
[2021-05-13 06:51] VITALS: RESP 14
[2021-05-13] MEDS: busPIRone HCl 5 MG TAB PO SCH ×4 (07:50→21:13)
[2021-05-13] MEDS: ACAMPROSATE CALCIUM 333 MG TABLET.DR PO SCH ×3 (07:50→21:12)
[2021-05-13] MEDS: buPROPion 75 MG TAB PO SCH (07:50)
[2021-05-13] MEDS: MULTIVITAMINS, THERA 1 EACH TAB PO SCH (07:51)
[2021-05-13] MEDS: FOLIC ACID 1 MG TAB PO SCH (07:51)
[2021-05-13] MEDS: THIAMINE 100 MG TAB PO SCH ×2 (07:51→17:10)
[2021-05-13] MEDS: FAMOTIDINE 20 MG TAB PO SCH ×2 (07:51→20:19)
[2021-05-13] MEDS: NON FORMULARY DRUG (Buprenorphine Hcl/Naloxone Hcl [Suboxone 8 Mg-2 Mg Sl Film] 1 EACH Fil SUBLINGUAL SCH ×3 (08:13→21:12)
--- NOTE | 2021-05-13 12:23 | PN ---
PROGRESS NOTE DATE OF SERVICE: 05/13/2021. CHIEF COMPLAINT: The patient presented to the ED with alcohol intoxication. He stated he became increasingly depressed because of uncontrolled drinking. INTERVAL HISTORY: Patient has been doing fairly well. He generally has a fairly intense manner. Yesterday he was out on the unit. He wanders around a lot. He often can be walking in a fairly brisk manner. He will interact with others. It is noted that when I saw him yesterday, he seemed to be in a fairly quiet mood, though when I saw him after that at different times in the day he was quite talkative. At times he got loud. There was one point where he was on the telephone and almost yelling at someone. I later heard him out in the [place] saying that he was apologizing for being loud, "if anyone heard me." He did not attend groups yesterday. He had one CIWA score of 9 with notation of moderate fidgety/restless and minimal palms moist. He said he slept fairly well last night. Today he has been up and generally has been doing the same. He is somewhat energetic. He comes out on the unit. He had no specific complaints or concerns when I talked to him. His first CIWA score today was 1. He tolerates his psychotropic medications. MENTAL STATUS: Patient gave good eye contact. He was quite restless. He answered questions with brief responses. His thoughts were clear. He had an intense manner. His mood was somewhat elevated. He did not appear to be distressed. There was no indication of thought disorder. He denied thoughts of harm. Cognition was clear. ASSESSMENT: I will continue the current diagnosis and treatment plan. I will continue psychotropic medications the same. Patient appears to be making progress in regard to at least managing early withdrawal issues. He does have a fairly intense manner whether or not that is a reflection of possible hypomanic symptoms remains to be seen. Main impact that he is dealing with currently is likely to be his withdrawal issues. We will focus on stabilization and discharge planning. The patient understands that followup plans will be discussed and hopefully solidified tomorrow during the morning treatment team meeting. We will coordinate with outpatient resources for discharge planning and followup care. MMENE / ESHAN: [id number] /
[2021-05-13] MEDS: QUEtiapine 50 MG TAB PO SCH ×2 (20:19→23:02)
[2021-05-14 06:16] VITALS: TEMP 97.7
[2021-05-14] MEDS: busPIRone HCl 5 MG TAB PO SCH ×2 (07:50→12:45)
[2021-05-14] MEDS: ACAMPROSATE CALCIUM 333 MG TABLET.DR PO SCH (07:50)
[2021-05-14] MEDS: MULTIVITAMINS, THERA 1 EACH TAB PO SCH (07:51)
[2021-05-14] MEDS: FOLIC ACID 1 MG TAB PO SCH (07:51)
[2021-05-14] MEDS: THIAMINE 100 MG TAB PO SCH (07:51)
[2021-05-14] MEDS: buPROPion 75 MG TAB PO SCH (07:51)
[2021-05-14] MEDS: FAMOTIDINE 20 MG TAB PO SCH (07:51)
[2021-05-14 07:54] VITALS: BP 123/83; PULSE 118
[2021-05-14] MEDS: NON FORMULARY DRUG (Buprenorphine Hcl/Naloxone Hcl [Suboxone 8 Mg-2 Mg Sl Film] 1 EACH Fil SUBLINGUAL SCH (08:38)
--- NOTE | 2021-05-14 09:53 | P.DS ---
Providers Date of admission: 05/09/21 15:28 Expected date of discharge: 05/14/21 Attending physician: Jonatan Flores MD Consults: 05/09/21 16:45 Consult Physician Routine Consulting Provider: Reynaldo Marin Consult Reason/Comments: history and physical/medical management Do you want consulting provider notified?: Yes Primary care physician: Stated None - Discharge Diagnosis(es) (1) Depressive disorder Current Visit: Yes Status: Acute Priority: High (2) Alcohol use disorder, severe, dependence Current Visit: Yes Status: Acute Priority: High (3) History of opioid abuse Current Visit: Yes Status: Acute Priority: Low (4) Cannabis use disorder, mild, abuse Current Visit: Yes Status: Acute Priority: Low (5) Nicotine dependence Current Visit: Yes Status: Acute Priority: Low Hospital Course: Admission HPI: Admission note was completed by insurance underwriter sales "This patient is a 36-year-old male with a history of alcohol use/abuse, who is homeless and lives in his car, has 2 kids were estranged to him. He is single and collects Social Security disability. The patient presented to the hospital initially on 05/04 to the ER with alcohol intoxication and was requesting Ativan. Patient was stabilized at that time and discharged from the ER. Patient returned back to the hospital on 05/06 again with alcohol intoxication with a blood alcohol level of 338. Patient's AST and ALT were elevated. His UDS was positive for benzodiazepines and THC. Due to patient's significant CIWA scores and history of withdrawals and elevated blood alcohol level patient was admitted to medicine for alcohol withdrawal monitoring from 05/06-05/09. Patient was seen by insurance underwriter sales for psych consult. At that time He appeared to be an significant distress and was tremulous and nauseous and vomiting in his pocket. He claims that he was "severely drinking". He states that for the past 3 weeks it has increased severely and he "can't stop". He states that he was trying to "kill myself". He states that his stressor recently has been since he is homeless for the past 9 months. He states that his last drink was yesterday before coming into the ER. He states that he regularly drinks approximately 3/5 of vodka a day. He states that he has had called [facility] ruggieros in the past. He claimed that he is feeling depressed and anxious and was fairly focused on his medications. He states that he is having nausea and tremors at this time. He continued that he has poor sleep. Patient was restarted on some of his home medications and also Valium for withdrawal symptoms. Once patient was medically stabilized she was transferred to the mental health unit last night. Patient was seen today for psychiatric evaluation and continues to state that he is feeling depressed and anxious. He states that he would like to get back on his home medications and went through every medication with insurance underwriter sales. He states that his sleep has been improving with the Valium and Seroquel. He states that his withdrawal symptoms have improved significantly. He claims at this time that he wants to stay sober however does not know how. He claims that he does not get benefit from rehab and would rather do outpatient [facility] follow-up. Patients admits to using alcohol as described above. She also has claimed that he has been to rehab several times in the past including [facility] in [place]. He claims that he also smokes marijuana occasionally. He also claims that he smokes cigarettes. " Hospital course: Upon admission to the unit patient was initially depressed and going through withdrawals from alcohol use. Patient was however directable and agreeable to commence treatment and signed adult voluntary form. Patient got along well with other patients on the unit and followed unit protocol. Patient was compliant with the medications and denied any side effects throughout hospital course. Patient was started on Valium scheduled for alcohol withdrawal and gradually tapered off. Patient was also on CIWA protocol with Ativan when necessary. Patient was started on Seroquel and titrated up to dose of 100 mg daily at bedtime for mood stabilization/insomnia. Patient was previously on a dose of 300 mg however did not want to go that high and dose any longer. Patient was also restarted back on Wellbutrin 75 mg daily for mood and also BuSpar 15 mg 3 times a day for anxiety. Patient was agreeable to start acamprosate 666 mg 3 times a day for alcohol cravings. Patient spoke of his stressors and engaged in therapy both group and individual. Patient was also seen by medical team for history and physical exam. Throughout the course of the hospitalization patient gradually improved with regards to mood, anxiety, withdrawal symptoms, sleep and became more future oriented with improved insight and judgment. On the day of discharge patient denied any suicidal or homicidal ideations intent or plan denied any auditory or visual hallucinations. Patient endorsed wanting to live for his health and kids, family. The patient denied any access to guns or weapons. Patient denied any paranoia and did not endorse any delusions. Patient does have a significant history of substance abuse and was counseled on abstaining from all substances including alcohol and marijuana. Patient was offered however declined inpatient substance-abuse rehab. Patient elected to do outpatient substance use treatment program through [facility]. Patient was also interested in starting acamprosate 3 times a day for alcohol cravings. Patient was also counseled on the medications and need for regular compliance and was encouraged to follow-up with their outpatient appointment for mental health and also for primary care. Prior to discharge a family meeting will be arranged by renal social worker to answer any questions and ensure safety upon discharge. Mental status exam: General Appearance: Patient appears to be stated age is alert, pleasant, and cooperative. Patient is in no acute distress and has improved hygiene and grooming Behavior: Patient is calmly seated without any agitated behavior. Speech: Patient's speech is fluent and nonpressured. Mood/Affect: Patient reports their mood is "better", affect is congruent and euthymic. Suicidality/Homicidality: Patient denies having any suicidal or homicidal ideation intent or plan. Perceptions: Patient denies any auditory or visual hallucinations. Though content/process: There is no evidence of any delusional thought content and thought process is linear and goal-directed. more future oriented Memory and concentration: AOX3, grossly intact for the purposes of this session. Can spell "WORLD" backwards correctly. Judgment and insight: chronically poor, however has improved with guarded prognosis Impression: Depressive disorder unspecified, rule out bipolar depression versus major depressive disorder versus alcohol-induced mood disorder Alcohol use disorder, severe dependence Cannabis use disorder mild History of opiate abuse Nicotine dependence Plan: -Continue with discharge today as patient has improved and stabilized psychiatrically and is not currently an imminent threat to himself and/or others. Patient will remain at chronically elevated risk for harm to self and/or others due to his polysubstance abuse. -Continue medications: Seroquel 100 mg daily at bedtime for mood stabilization/insomnia, Wellbutrin 75 mg daily for mood, BuSpar 15 mg 3 times a day for anxiety, acamprosate 666 mg 3 times a day for alcohol cravings. -Patient was counseled on the need for medication compliance and appropriate follow-up at mental health and also primary care for medical issues. Patient verbalized understanding and agreed. -Social work to arrange for and conduct family meeting to ensure safety upon discharge and answer any questions/concerns. Social work also to arrange for patients follow up appointments with [facility] for psychiatric care along with follow up with primary care provider. -Patient counseled on abstaining from recreational drugs and marijuana and alcohol. Was informed/educated on the adverse effects on their physical and mental health. Patient verbally agreed and understood. Patient was offered substance abuse treatment however declined at this time. -Patient was instructed to return to the hospital or seek immediate medical care if their psychiatric or medical symptoms do worsen or reoccur. Allergies Allergy/AdvReac Type Severity Reaction Status Date / Time haloperidol [From Haldol] AdvReac Unknown Verified 05/09/21 17:31 Laboratory Results Sodium 137 mmol/L (137-145) 05/10/21 12:10 Potassium 3.8 mmol/L (3.5-5.1) 05/10/21 12:10 Chloride 100 mmol/L (98-107) 05/10/21 12:10 Carbon Dioxide 27 mmol/L (22-30) 05/10/21 12:10 Anion Gap 10 mmol/L 05/10/21 12:10 BUN 12 mg/dL (9-20) 05/10/21 12:10 Creatinine 0.77 mg/dL (0.66-1.25) 05/10/21 12:10 Est GFR (CKD-EPI)AfAm >90 (>60 ml/min/1.73 sqM) 05/10/21 12:10 Est GFR (CKD-EPI)NonAf >90 (>60 ml/min/1.73 sqM) 05/10/21 12:10 Glucose 98 mg/dL (74-99) 05/10/21 12:[address] Glu mg/dL 94 05/06/21 14:32 Hemoglobin A1c 4.9 % (4.0-6.0) 05/06/21 14:32 Calcium 9.7 mg/dL (8.4-10.2) 05/10/21 12:10 Total Bilirubin 0.6 mg/dL (0.2-1.3) 05/10/21 12:10 AST 96 U/L (17-59) H 05/10/21 12:10 ALT 60 U/L (4-49) H 05/10/21 12:10 Alkaline Phosphatase 96 U/L (38-126) 05/10/21 12:10 Total Protein 7.5 g/dL (6.3-8.2) 05/10/21 12:10 Albumin 4.3 g/dL (3.5-5.0) 05/10/21 12:10 Triglycerides 65.0 mg/dL (0.0-149.0) 05/06/21 14:32 Cholesterol 187 mg/dL (0-200) 05/06/21 14:32 LDL Cholesterol, Calc 81.0 mg/dL (0.0-131.0) 05/06/21 14:32 VLDL Cholesterol, Calc 13.00 mg/dL (5.00-40.00) 05/06/21 14:32 HDL Cholesterol 93.0 mg/dL (40.0-60.0) H 05/06/21 14:32 Cholesterol/HDL Ratio 2.01 05/06/21 14:32 TSH 2.120 mIU/L (0.465-4.680) 05/06/21 14:32 Vital Signs Temp 97.7 F 05/14/21 06:15 Pulse 118 H 05/14/21 07:52 Resp 14 05/14/21 06:15 BP 123/83 05/14/21 07:52 Pulse Ox 97 05/09/21 15:29 Patient Condition at Discharge: Stable Plan - Discharge Summary Discharge Rx Participant: No New Discharge Prescriptions: New busPIRone HCL [Buspar] 15 mg PO TID 30 Days tablet Acamprosate Calcium [Campral] 666 mg PO TID 30 Days tablet Multivitamins, Thera [Multivitamin (formulary)] 1 each PO DAILY 30 Days tab buPROPion [Wellbutrin] 75 mg PO DAILY 30 Days tab QUEtiapine [SEROquel] 100 mg PO HS 30 Days tab Continue Famotidine [Pepcid] 20 mg PO BID 30 Days #60 tablet Buprenorphine HCl/Naloxone HCl [Suboxone 8 mg-2 mg Sl Film] 1 film SL TID Folic Acid 1 mg PO DAILY 30 Days tab Thiamine [Vitamin B-1] 100 mg PO BID-W/MEALS 30 Days tab Discontinued busPIRone HCl [Buspar] 10 mg PO TID tab diazePAM [Valium] 10 mg PO BID tab Ondansetron Odt [Zofran Odt] 4 mg PO Q8HR PRN #20 tab PRN Reason: Nausea QUEtiapine [SEROquel] 25 mg PO HS tab Discharge Medication List Buprenorphine HCl/Naloxone HCl [Suboxone 8 mg-2 mg Sl Film] 1 film SL TID 04/06/21 [History] Acamprosate Calcium [Campral] 666 mg PO TID 30 Days tablet 05/14/21 [Rx] Famotidine [Pepcid] 20 mg PO BID 30 Days #60 tablet 05/14/21 [Rx] Folic Acid 1 mg PO DAILY 30 Days tab 05/14/21 [Rx] Multivitamins, Thera [Multivitamin (formulary)] 1 each PO DAILY 30 Days tab 05/14/21 [Rx] QUEtiapine [SEROquel] 100 mg PO HS 30 Days tab 05/14/21 [Rx] Thiamine [Vitamin B-1] 100 mg PO BID-W/MEALS 30 Days tab 05/14/21 [Rx] buPROPion [Wellbutrin] 75 mg PO DAILY 30 Days tab 05/14/21 [Rx] busPIRone HCL [Buspar] 15 mg PO TID 30 Days tablet 05/14/21 [Rx] Activity/Diet/Wound Care/Special Instructions: Activity and diet as tolerated. Avoid the use of street drugs and alcohol. Take all medications as prescribed. When you are in need of refills on your medications please contact your medical provider and/or outpatient psychiatrist to have this done. Please go to scheduled outpatient appointment for aftercare treatment. If symptoms return or become worse, call the crisis line at and/or go to the nearest emergency room for evaluation. Discharge Disposition: HOME SELF-CARE
[2021-05-14] MEDS ORDERED: QUEtiapine 100 MG TAB PO SCH (21:00)
== END 2021-05-14 13:02 | disposition home or self-care (01) | DRG 897 ==
LOC: 3MHU 15:28
PROVIDERS: ADMIT Psychiatry & Neurology Psychiatry; ATTEND Psychiatry & Neurology Psychiatry
DX: F10.229 Alcohol dependence with intoxication, unspecified (principal); R45.851 Suicidal ideations; F32.9 Major depressive disorder, single episode, unspecified; F10.24 Alcohol dependence with alcohol-induced mood disorder; K21.9 Gastro-esophageal reflux disease without esophagitis; F98.8 Other specified behavioral and emotional disorders with onset usually occurring in childhood and adolescence; F12.10 Cannabis abuse, uncomplicated; F41.9 Anxiety disorder, unspecified; Y90.8 Blood alcohol level of 240 mg/100 ml or more; Z59.0 Homelessness; Z79.899 Other long term (current) drug therapy; Z91.83 Wandering in diseases classified elsewhere; F17.200 Nicotine dependence, unspecified, uncomplicated; K29.20 Alcoholic gastritis without bleeding; K70.10 Alcoholic hepatitis without ascites
CPT/HCPCS: 80053; 80061; 83036; 84443

== ENCOUNTER 2023-03-07 08:30 | Emergency (ER) | payer OTHER ==
[2023-03-07 08:39] VITALS: BP 121/95; PULSE 115; RESP 18; TEMP 98
[2023-03-07] MEDS ORDERED: LORazepam 0.5 MG TAB PO PRN (08:45)
[2023-03-07] MEDS ORDERED: LORazepam 2 MG/ML INJ IV PRN (08:45)
[2023-03-07] MEDS ORDERED: LORazepam 1 MG TAB PO PRN ×3 (08:45)
[2023-03-07] MEDS ORDERED: THIAMINE 100 MG/ML 2 ML VIAL IM STA (08:45)
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
[2023-03-07] MEDS ORDERED: ONDANSETRON ODT 4 MG TAB PO STA ×2 (09:06→13:44)
[2023-03-07] MEDS: LORazepam 1 MG TAB PO PRN ×3 (09:06→13:43)
[2023-03-07 12:14] LABS: Amphetamine Screen,Urine Not Detected (NotDetected); Barbiturate Screen,Urine Not Detected (NotDetected); Benzodiazepines Screen,Urine Detected (NotDetected); Cocaine Screen,Urine Not Detected (NotDetected); Methadone Screen, Urine Not Detected (NotDetected); Opiate Screen,Urine Not Detected (NotDetected); Oxycodone Screen, Urine Not Detected (NotDetected); Phencyclidine Screen,Urine Not Detected (NotDetected); Tricyclic Antidepressant,Urine Not Detected (NotDetected); Urn Cannabinoid Scrn Detected (NotDetected)
[2023-03-07] MEDS ORDERED: ONDANSETRON 4 MG/2 ML VIAL IVP STA (13:45)
[2023-03-07] MEDS ORDERED: SODIUM CHLORIDE 0.9% 1,000 ML IV STA (13:45)
[2023-03-07] MEDS ORDERED: METOCLOPRAMIDE 5 MG/ML 2 ML VIAL IVP STA (14:24)
[2023-03-07 14:27] LABS: Basophils % (A) 0 %; Eosinophils % (A) 0 %; HCT 43.1 % (39.0-53.0); Lymphocytes # (A) 1.4 k/uL (1.0-4.8); Lymphocytes % (A) 13 %; MCH 31.3 pg (25.0-35.0); MCHC 34.8 g/dL (31.0-37.0); MCV 89.9 fL (80.0-100.0); Mean Platelet Volume 7.6; Monocytes # (A) 0.2 k/uL (0-1.0); Monocytes % (A) 2 %; Neutrophils # (A) 9.2 k/uL (1.3-7.7); Neutrophils % (A) 84 %; Platelet Count 237 k/uL (150-450); RDW 13.4 % (11.5-15.5)
[2023-03-07 14:42] LABS: ALT 202 U/L (4-49); AST 257 U/L (17-59); African American GFR (CKD) >90 (>60 ml/min/1.73 sqM); Albumin 5.1 g/dL (3.5-5.0); Alkaline Phosphatase 115 U/L (38-126); Amylase 66 U/L (30-110); Anion Gap 18 mmol/L; Blood Urea Nitrogen 22 mg/dL (9-20); Calcium 8.9 mg/dL (8.4-10.2); Carbon Dioxide 21 mmol/L (22-30); Chloride 95 mmol/L (98-107); Glucose 81 mg/dL (74-99); Lipase 65 U/L (23-300); Non-African American GFR(CKD) >90 (>60 ml/min/1.73 sqM); Phosphorus 4.3 mg/dL (2.5-4.5); Potassium 4.2 mmol/L (3.5-5.1); Sodium 134 mmol/L (137-145); Total Bilirubin 0.9 mg/dL (0.2-1.3); Total Protein 9.4 g/dL (6.3-8.2)
[2023-03-07 15:01] LABS: Alcohol 83 mg/dL
[2023-03-07] MEDS ORDERED: ONDANSETRON 4 MG ODT STARTER PACK 2 TAB BTL PO STA (16:53)
[2023-03-08] MEDS ORDERED: THIAMINE 100 MG TAB PO SCH (09:00)
== END 2023-03-07 17:09 | disposition home or self-care (01) ==
LOC: EC 08:30
DX: F10.129 Alcohol abuse with intoxication, unspecified (principal); F19.10 Other psychoactive substance abuse, uncomplicated; F90.9 Attention-deficit hyperactivity disorder, unspecified type; F31.9 Bipolar disorder, unspecified; F17.290 Nicotine dependence, other tobacco product, uncomplicated; F12.90 Cannabis use, unspecified, uncomplicated; F11.90 Opioid use, unspecified, uncomplicated; F15.90 Other stimulant use, unspecified, uncomplicated; Z88.8 Allergy status to other drugs, medicaments and biological substances; Z79.899 Other long term (current) drug therapy
CPT/HCPCS: 82075; 36415; 80053; 82150; 83690; 83735; 84100; 85025; 80306; 99285; 96374; 96375; 96361; 96372; G0480; J2765; J3411; J2405; 80320